=== PATIENT | female | born 1950 | race Caucasian/White ===

== ENCOUNTER 2020-05-28 14:00 | Outpatient (RCR) | payer MEDICARE, SELFPAY ==
--- NOTE | 2020-05-12 15:09 | MHC.PT.EP ---
[facility] [place] Office [place] Office [place] Office [address] Robel Hughes [address] [phone] F: [phone] F: [phone] F: [phone] F: [phone] Physical Therapy Plan of Care Date of Evaluation: 05/12/20 Date of Surgery: n/a Diagnosis: Sciatica Assessment: Patient is a 70 year old R handed female who presents with s/s consistent with sciatica. She is retired but use to work a challenging job with heavy lifting frequently during her day. She also had a back injury as a teen that required bracing for almost an entire year. Bending/prolonged positions aggravate pain. Patient past medical history also include HTN and high cholesterol. Current impairments include pain, ROM, strength, activity tolerance and functional mobility. Functional limitations include decreased ability to walk, stand, transfer, negotiate stairs, and perform weight bearing activities.. Patient is motivated with good rehab potential. Skilled PT will address impairments and functional limitations in order to achieve goals. Frequency and Duration: The patient will be seen 2x/week for 6 weeks Short Term Goals: I with HEP - 2 weeks Reduce R sided tissue tension - 3 weeks Symmetrical extension - 3 weeks Detention Goals: Able to walk/stand/sit > 30 minutes without increased pain - 5 weeks Pain free ADLS, demo proper transfer mechanics, floor to waist lift - 6 weeks Treatment Plan: Modalities to reduce pain, spasms and effusion. Manual therapy to restore motion and function. Therapeutic exercise to improve strength and flexibility. Neuromuscular re-education for posture and balance. Therapeutic activities to return to functional activities of daily living. Please sign and return to therapist. Thank you for your referral.
--- NOTE | 2020-06-19 10:38 | MHC.PT.DC ---
[facility] [place] Office [address] Robel Hughes [address] [phone] F: [phone] F: [phone] F: [phone] F: [phone] Physical Therapy Discharge Report Diagnosis: Sciatica Date of Surgery: n/a Date of Evaluation: 05/12/20 Date of Discharge: 06/19/20 Treatments to Date: 3 Cancellations to Date: No Shows to Date: Discharge Status: Independent with HEP Discharge Summary: Pt felt relief after RX. Improv alignment L rot sacrum. Pt c/o S/S pain. To attempt to continue with HEP. Electronically signed by: Kevin Nuñez PT Please sign and return to therapist. Thank you for your referral.
== END 2020-06-19 10:39 | disposition home or self-care (01) ==
LOC: HO.PTCHIC 14:00
PROVIDERS: PCP Internal Medicine; Visit Provider Internal Medicine
DX: M54.30 Sciatica, unspecified side (principal)
CPT/HCPCS: 97014; 97110; 97140; 97161

== ENCOUNTER 2020-06-05 08:28 | Outpatient (REF) | payer MEDICARE, SELFPAY ==
--- NOTE | 2020-06-05 08:29 | US_ITS ---
EXAMINATION: US THYROID CLINICAL INFORMATION: Nontoxic goiter, unspecified. COMPARISON:. Ultrasound soft tissue head/neck thyroid dated 05/14/2019 TECHNIQUE: Linear transducer pearson-scale and color Doppler examination with attention to the region of the thyroid. FINDINGS: SIZE: Measurements of the thyroid lobes and nodules are given in sagittal, anteroposterior and transverse dimensions respectively. Right Thyroid Lobe: 3.5 x 1.7 x 1.2 cm, volume 3.6 mL. Parenchyma: The gland echotexture is homogeneous. Thyroid vascularity is normal. Left Thyroid Lobe: 3.5 x 1.2 x 1.2 cm, volume 2.6 mL. Parenchyma: The gland echotexture is homogeneous. Thyroid vascularity is normal. Isthmus: 0.1 cm in maximum AP dimension. RIGHT THYROID LOBE: No nodules. ISTHMUS: No nodules. LEFT THYROID LOBE: No nodules. NODES: No lymphadenopathy is seen in the tissue surrounding the thyroid gland. US/US thyroid IMPRESSION: Unremarkable thyroid ultrasound. No nodules seen. No increased vascularity.
--- NOTE | 2020-06-05 08:29 | US_ITS ---
EXAMINATION: US RETROPERITONEAL LIMITED (RENAL ONLY) CLINICAL INFORMATION: Hematuria, unspecified. COMPARISON: Ultrasound abdomen complete 10/19/2018. TECHNIQUE: Real-time imaging of the kidneys. FINDINGS: RIGHT KIDNEY: 10.3 x 4.5 x 5.8 cm (SAG x AP x TRV). The kidney is normal in size, contour, and echogenicity. Renal cortical thickness is normal. No calculi or focal parenchymal lesions. No hydronephrosis. LEFT KIDNEY: 11.3 x 5.0 x 4.5 cm (SAG x AP x TRV). The kidney is normal in size, contour, and echogenicity. Renal cortical thickness is normal. No calculi or focal parenchymal lesions. No hydronephrosis. US/US renal BI IMPRESSION: Unremarkable renal ultrasound.
== END 2020-06-05 08:29 | disposition home or self-care (01) ==
LOC: HO.HMGCX 08:28
PROVIDERS: PCP Internal Medicine; Visit Provider Internal Medicine
DX: E04.9 Nontoxic goiter, unspecified (principal); R31.9 Hematuria, unspecified
CPT/HCPCS: 76536; 76775

== ENCOUNTER 2020-07-30 08:41 | Outpatient (REF) | payer MEDICARE, SELFPAY ==
--- NOTE | 2020-07-30 08:52 | XR_ITS ---
EXAMINATION: XR CHEST CLINICAL INFORMATION: Cough COMPARISON: Chest radiographs 03/26/2020 TECHNIQUE: 2 views of the chest were obtained. FINDINGS: The lungs are clear. The heart is normal in size. The vascularity is normal. The costophrenic sulci are clear. Hilar and mediastinal contours and bony structures are stable. Again, there are bilateral cervical ribs and some surgical clips overlying the left anterolateral chest or axilla. XR/XR chest 2V IMPRESSION: Unremarkable examination.
[2020-07-30 11:24] LABS: Alanine Aminotransferase 42 U/L (0-31); Albumin Level 4.5 g/dL (3.5-5.0); Alkaline Phosphatase 90 U/L (39-117); Anion Gap 15 (12-20); Aspartate Amino Transferase 23 U/L (5-31); Bilirubin Total 0.7 mg/dL (0.0-1.0); Blood Urea Nitrogen 20 mg/dL (9-16); Calcium 9.5 mg/dL (8.4-10.2); Carbon Dioxide 28 mmol/L (22-29); Chloride 104 mmol/L (96-108); Cholesterol 163 mg/dL; Estimated Glomerular Filt Rate 48; Glucose Fasting 107 mg/dL (60-99); HDL Cholesterol 41 mg/dL; LDL Cholesterol Calculated 86 mg/dl; Potassium 3.5 mmol/l (3.3-5.1); Sodium 143 mmol/L (135-145); Total Protein 7.2 g/dL (6.5-8.0); Triglycerides 184 mg/dL
[2020-07-30 12:00] LABS: TSH reflex Free T4 2.87 mIU/mL (0.32-4.0)
== END 2020-07-30 08:42 | disposition home or self-care (01) ==
LOC: HO.HMGCX 08:41
PROVIDERS: PCP Internal Medicine; Visit Provider Internal Medicine
DX: R05 Cough (principal); I10 Essential (primary) hypertension; E78.5 Hyperlipidemia, unspecified; J40 Bronchitis, not specified as acute or chronic
CPT/HCPCS: 36415; 71046; 80053; 80061; 84443

== ENCOUNTER 2021-04-23 10:34 | Outpatient (REF) | payer MEDICARE, SELFPAY ==
[2021-04-23 14:05] LABS: Hematocrit 38.1 % (37-47); Hemoglobin 12.9 g/dl (12.0-16.0); Mean Corpuscular HGB Conc 33.9 g/dl (31.0-35.0); Mean Corpuscular Hemoglobin 30.7 pg (27.0-33.0); Mean Corpuscular Volume 90.7 fL (80-98); Mean Platelet Volume 9.5 fL (9.4-12.3); Platelet Count 256 X10*3/uL (160-400); Red Cell Distribution Width 12.6 % (11.0-16.0); White Blood Count 8.3 X10*3/uL (4.8-10.8)
[2021-04-23 14:19] LABS: Alanine Aminotransferase 40 U/L (0-31); Albumin Level 4.4 g/dL (3.5-5.0); Alkaline Phosphatase 91 U/L (39-117); Anion Gap 13 (12-20); Aspartate Amino Transferase 28 U/L (5-31); Bilirubin Total 0.6 mg/dL (0.0-1.0); Blood Urea Nitrogen 25 mg/dL (9-16); Calcium 9.9 mg/dL (8.4-10.2); Carbon Dioxide 27 mmol/L (22-29); Chloride 105 mmol/L (96-108); Cholesterol 150 mg/dL; Estimated Glomerular Filt Rate 44; Glucose Fasting 108 mg/dL (60-99); HDL Cholesterol 38 mg/dL; LDL Cholesterol Calculated 88 mg/dl; Potassium 3.3 mmol/L (3.3-5.1); Sodium 142 mmol/L (135-145); Total Protein 6.9 g/dL (6.5-8.0); Triglycerides 122 mg/dL
[2021-04-23 14:39] LABS: TSH reflex Free T4 2.49 uIU/mL (0.32-4.0)
[2021-04-23 16:29] LABS: Appearance Urine CLOUDY; Color Urine YELLOW; Glucose Urine UA NEG (NEG); Leukocyte Esterase Urine 1+ (NEG); Nitrite Urine POS (NEG); Specific Gravity - Urine 1.025 (1.005-1.025); Urine Blood NEG (NEG); Urine Ketones NEG (NEG); Urine Protein NEG (NEG-TRACE)
[2021-04-23 16:40] LABS: Bacteria Urine 3+ /LPF; Mucus Urine 2+ /LPF; Squamous Epithelial Cell Urine 1+ /LPF; Urine Talc Crystals TRACE /LPF
[2021-04-23 16:41] LABS: RBC Urine 0-2 /HPF (0)
== END 2021-04-23 10:35 | disposition home or self-care (01) ==
LOC: HO.HMGCLDS 10:34
PROVIDERS: PCP Internal Medicine; Visit Provider Internal Medicine
DX: R73.9 Hyperglycemia, unspecified (principal); I10 Essential (primary) hypertension; E78.5 Hyperlipidemia, unspecified
CPT/HCPCS: 36415; 80053; 80061; 81001; 84443; 85027

== ENCOUNTER 2022-01-01 10:32 | Outpatient (REF) | payer MEDICARE, SELFPAY ==
[2022-01-01 12:15] LABS: Estimated Average Glucose 100 mg/dL; Hemoglobin A1c % 5.1 %
[2022-01-01 12:20] LABS: TSH reflex Free T4 2.91 uIU/mL (0.32-4.0)
[2022-01-01 12:24] LABS: Alanine Aminotransferase 22 U/L (0-31); Albumin Level 4.5 g/dL (3.5-5.0); Alkaline Phosphatase 82 U/L (39-117); Anion Gap 12 (12-20); Aspartate Amino Transferase 23 U/L (5-31); Bilirubin Total 0.6 mg/dL (0.0-1.0); Blood Urea Nitrogen 22 mg/dL (9-16); Calcium 9.8 mg/dL (8.4-10.2); Carbon Dioxide 27 mmol/L (22-29); Chloride 107 mmol/L (96-108); Cholesterol 169 mg/dL; Estimated Glomerular Filt Rate 47; Glucose Fasting 108 mg/dL (60-99); HDL Cholesterol 42 mg/dL; LDL Cholesterol Calculated 96 mg/dl; Potassium 3.5 mmol/L (3.3-5.1); Sodium 142 mmol/L (135-145); Triglycerides 155 mg/dL
[2022-01-01 14:22] LABS: Microalbum/Creatinine Ratio Ur 6.3 ug/mg cr
== END 2022-01-01 10:33 | disposition home or self-care (01) ==
LOC: HO.HMGCLDS 10:32
PROVIDERS: PCP Internal Medicine; Visit Provider Internal Medicine
DX: E04.9 Nontoxic goiter, unspecified (principal); E78.5 Hyperlipidemia, unspecified; I10 Essential (primary) hypertension; R73.9 Hyperglycemia, unspecified
CPT/HCPCS: 36415; 80053; 80061; 82043; 83036; 84443

== ENCOUNTER → 2022-02-22 10:54 | Outpatient (BNVA) | payer MEDICARE, SELFPAY | PROVIDERS: PCP Internal Medicine; Referring Provider Internal Medicine; Visit Provider Physician Assistant | DX: Z01.818 Encounter for other preprocedural examination (principal); K52.9 Noninfective gastroenteritis and colitis, unspecified; K59.09 Other constipation; R10.9 Unspecified abdominal pain; Z79.899 Other long term (current) drug therapy; Z86.010 Personal history of colon polyps | CPT/HCPCS: 99202 ==

== ENCOUNTER 2022-12-15 11:40 | Outpatient (REF) | payer MEDICARE, SELFPAY ==
[2022-12-15 13:58] LABS: MANUAL DIFF FLAG NO
[2022-12-15 14:00] LABS: Appearance Urine Clear; Color Urine Yellow; Glucose Urine UA Negative (Negative); Leukocyte Esterase Urine Small (1+) (Negative); Nitrite Urine Positive (Negative); UMIC TRIGGER UA YES; Urine Blood Negative (Negative); Urine Ketones Negative (Negative); Urine Protein Negative (Neg-Trace)
[2022-12-15 14:06] LABS: Basophils Absolute Auto 0.1 X10*3/uL (0.0-0.2); Basophils Percent Auto 0.9 % (0-2); Eosinophils Absolute Auto 0.2 X10*3/uL (0.0-0.4); Eosinophils Percent Auto 2.8 % (0-4); Hemoglobin 14.1 g/dl (12.0-16.0); Imm Gran Abs Auto 0.02 X10*3/uL (0.00-0.03); Imm Gran Pct Auto 0.3 % (0.0-0.4); Lymphocytes Absolute Auto 1.9 X10*3/uL (1.2-4.9); Lymphocytes Percent Auto 24.4 % (20-40); Mean Corpuscular HGB Conc 33.6 g/dl (31.0-35.0); Mean Corpuscular Hemoglobin 31.3 pg (27.0-33.0); Mean Corpuscular Volume 93.1 fL (80.0-98.0); Mean Platelet Volume 9.7 fL (9.4-12.3); Monocytes Absolute Auto 0.6 X10*3/uL (0.1-1.2); Monocytes Percent Auto 7.9 % (2-11); Neutrophils Absolute Auto 4.9 x10*3/uL (2.0-8.3); Neutrophils Percent Auto 63.7 % (45-73); Platelet Count 249 X10*3/uL (160-400); Red Blood Count 4.51 X10*6/uL (4.20-5.50); Red Cell Distribution Width 13.1 % (11.0-16.0); White Blood Count 7.6 X10*3/uL (4.8-10.8)
[2022-12-15 14:11] LABS: Bacteria Urine 4+ (None Seen); Hyaline Casts Urine 0-2 /LPF (0-2)
[2022-12-15 14:17] LABS: Estimated Average Glucose 103 mg/dL; Hemoglobin A1c % 5.2 %
[2022-12-15 14:23] LABS: Alanine Aminotransferase 25 U/L (0-31); Albumin Level 4.3 g/dL (3.5-5.0); Alkaline Phosphatase 71 U/L (39-117); Anion Gap 12 (12-20); Aspartate Amino Transferase 21 U/L (5-31); Bilirubin Total 0.8 mg/dL (0.0-1.0); Blood Urea Nitrogen 19 mg/dL (9-16); Calcium 9.8 mg/dL (8.4-10.2); Carbon Dioxide 27 mmol/L (22-29); Chloride 108 mmol/L (96-108); Cholesterol 169 mg/dL; Estimated Glomerular Filt Rate 55; Glucose Fasting 106 mg/dL (60-99); HDL Cholesterol 47 mg/dL; LDL Cholesterol Calculated 94 mg/dl; Potassium 3.9 mmol/L (3.3-5.1); Sodium 143 mmol/L (135-145); Total Protein 7.1 g/dL (6.5-8.0); Triglycerides 144 mg/dL
[2022-12-15 14:38] LABS: TSH reflex Free T4 1.83 uIU/mL (0.32-4.0)
== END 2022-12-15 11:41 | disposition home or self-care (01) ==
LOC: HO.HMGCLDS 11:40
PROVIDERS: PCP Internal Medicine; Visit Provider Internal Medicine
DX: R73.9 Hyperglycemia, unspecified (principal); I10 Essential (primary) hypertension; E78.5 Hyperlipidemia, unspecified
CPT/HCPCS: 36415; 80053; 80061; 81001; 83036; 84443; 85025

== ENCOUNTER 2023-01-06 10:35 | Outpatient (REF) | payer MEDICARE, SELFPAY | END 2023-01-06 10:36 | disposition home or self-care (01) | LOC: HO.HMGCLDS 10:35 | PROVIDERS: PCP Internal Medicine; Visit Provider Internal Medicine | DX: R82.71 Bacteriuria (principal) | CPT/HCPCS: 81001; 87086 ==

== ENCOUNTER 2023-02-24 13:59 | Outpatient (AMB) | payer MEDICARE, SELFPAY ==
[2023-02-24 14:29] VITALS: BP 118/64; PULSE 57; O2SAT 97; BMI 31.0
--- NOTE | 2023-02-24 14:29 | A.OFFPC_ITS ---
Vital Signs 02/24/23 14:29 Height 5 ft 6 in Weight 192 lb BMI 31.0 BP 118/64 Blood Pressure Location Lt brachial Position Sitting Pulse 57 Pulse Source Pulse Oximeter Pulse Oximetry (%) 97 Oxygen Delivery Method Room Air Intake Visit Reasons: lump on R armpit Intake Note: Pt is here today for a sick visit. Pt c/o lump under her R armpit. Allergies Penicillins Allergy (Intermediate, Verified 02/24/23 14:33) Hives Medication List - Last Reconciled 02/24/23 by Ilana Edouard MD amlodipine 5 mg PO DAILY atorvastatin 40 mg PO DAILY bisacodyl (Dulcolax (bisacodyl)) 10 mg (2 x 5 mg) PO ONCE 1 day donepezil 5 mg PO DAILY doxycycline monohydrate 100 mg PO BID methylcellulose (laxative) (Citrucel) 500 mg PO BID metoprolol succinate ER 50 mg PO DAILY nitrofurantoin monohyd/m-cryst 100 mg (Macrobid) 100 mg PO Q12H 7 days polyethylene glycol 3350 (Miralax) 238 grams PO ONCE 1 day sertraline 50 mg PO DAILY triamterene-hydrochlorothiazid 37.5-25 mg 1 tab PO DAILY Tobacco use date assessed: 12/15/22 Dental Screening Dental Screen Date: 02/24/23 Did you have a dental visit in the last 12 months?: Yes Did you have a dental problem in the last 6 months where you did not have access to dental care?: No Was dental information given to patient?: Patient has dentist HPI lump on R armpit HPI Details Pt presents c/o lump right axillary region since yesterday. Patient denies any pain, breast or nipple changes, fever chills. The most recent mammogram was over 2 years ago. Patient complains of right mid lumbar paraspinal pain worse with change in position or deep inspiration. Patient denies flank pain nausea vomiting dysuria frequency abdominal pain. [facility] Medical History (Updated 02/24/23 @ 15:15 by Ilana Edouard MD) Annual physical exam Asthma Bronchitis Chronic edema Cough Enlarged thyroid gland Family history- stomach cancer Hematuria History of mammogram HTN (hypertension) Hyperglycemia Hyperlipidemia Liver hemangioma Sciatica Submandibular gland infection Surgical History H/O colonoscopy H/O shoulder surgery Family History Father No problems noted. Mother No problems noted. Social History Housing: House Are you a primary animal care taker to a significant other at home: No Do you presently have visiting nurse or other home services: No Alcohol intake: never Patient Tobacco Use Status: Never used Tobacco e-Cigarette/Vaping Use: Never Used Current occupational status: retired Cognitive needs: No Hearing needs: No Vision needs: Yes Questionnaire Thrive Questionnaire Date Thrive assessed: 12/15/22 IRWIN-7 AMB Questionnaire IRWIN-7 Date IRWIN - 7 assessed: 12/15/22 Source: Developed by Drs. Jacoby Bernal, Lawanda Lu, Carlos Manuel Bills and colleagues, with an educational joel from [email or web address]. Review of Systems Const All systems reviewed & are unremarkable except as noted in HPI and below Reports no additional complaints Eyes Reports no additional complaints ENT Reports no additional complaints Card Reports no additional complaints Resp Reports no additional complaints GI Reports no additional complaints Reports no additional complaints Physical exam (Primary Care) Vital Signs: Last Vital Signs Pulse 57 02/24/23 14:29 BP 118/64 02/24/23 14:29 Pulse Ox 97 02/24/23 14:29 Oxygen Delivery Method Room Air 02/24/23 14:29 BMI result Body Mass Index 31.0 Tobacco/Smoking Status: Tobacco use Status Tobacco use date assessed 12/15/22 02/24/23 14:34 Patient Tobacco Use Status Never used Tobacco 02/24/23 14:34 e-Cigarette/Vaping Use Never Used 02/24/23 14:34 Thrive Assessment: Date of Thrive Assessment Date Thrive assessed 12/15/22 02/24/23 14:34 Const General: no acute distress Eyes General: appearance normal, both eyes and all related structures Chest Breast/axilla inspection: normal inspection of the breasts and abnormal inspection of the axilla (Right axillary 2 cm subcutaneous nodule mobile slightly tender no erythema ) Breast/axilla palpation: normal palpation of the breasts Resp Effort & Inspection: normal respiratory effort Auscultation: clear to auscultation bilaterally Cardio Rhythm: regular rhythm Heart sounds: S1 normal heart sound present and S2 normal heart sound present GI Inspection: Yes normal to inspection Palpation (GI): Soft to palpation Percussion: Yes normal to percussion Back/Spine/Pelvis Other: Paraspinal tenderness right more than left in mid lumbar region, straight leg rising 90 degrees bilaterally Assessment and Plan Assessment & Plan (1) Degenerative lumbar disc: Code(s): M51.36 - Other intervertebral disc degeneration, lumbar region Plan: Check lumbar x-ray and Referred to physical therapy (2) Axillary lump: Comment: right Code(s): R22.30 - Localized swelling, mass and lump, unspecified upper limb Plan: Obtain diagnostic right breast mammogram and screening left breast mammogram, doxycycline for 10 days is prescribed and supportive care discussed with the patient. If the mass persists patient will be referred to surgeon for evaluation Orders: Orders MM diagnostic mammo unilat RT Today M79.89 - Other specified soft tissue disorders MM screening mammo unilat LT Today Z12.31 - Encounter for screening mammogram for malignant neoplasm of breast PT Evaluation and Treatment Today M51.36 - Other intervertebral disc degeneration, lumbar region XR chest 1V Today M51.36 - Other intervertebral disc degeneration, lumbar region XR lumbar spine 2-3V Today M51.36 - Other intervertebral disc degeneration, lumbar region Medications: New doxycycline monohydrate 100 mg PO BID 20 tabs 0RF ketoconazole 2% 1 appl topical DAILY 60 grams 0RF Coding Level of Care Code Est Pt Level 4 (79473) Diagnoses Degenerative lumbar disc M51.36 Axillary lump R22.30
== END 2023-02-24 15:16 | disposition home or self-care (01) ==
PROVIDERS: PCP Internal Medicine; Visit Provider Internal Medicine
DX: M51.36 Other intervertebral disc degeneration, lumbar region (principal); R22.30 Localized swelling, mass and lump, unspecified upper limb
CPT/HCPCS: 99214

== ENCOUNTER 2023-02-24 15:05 | Outpatient (REF) | payer MEDICARE, SELFPAY ==
--- NOTE | ~2023-02-24 | XR_ITS ---
EXAMINATION: XR THORACOLUMBAR SPINE CLINICAL INFORMATION: Pain. COMPARISON: None available. TECHNIQUE: Frontal, lateral and swimmer's views are submitted. FINDINGS: Vertebral body heights and alignment are normal. There is mild posterior disc space narrowing at C2-C3. There is mild disc space narrowing and spondylosis at C4-C5 and C5-C6. There is moderate disc space narrowing spondylosis at C6-C7 and C7-T1. There is mild disc space narrowing at T8-T9. The remaining thoracic disc spaces are well-maintained. No acute fracture or spondylolisthesis is seen. The posterior elements are intact. The paravertebral soft tissues are unremarkable. XR/XR thoracic spine 2V IMPRESSION: 1. There is multi-level cervical degenerative disc disease and spondylosis, as above. 2. There is mild degenerative disc disease at T8-T9. 3. No acute fracture or spondylolisthesis is seen.
--- NOTE | ~2023-02-24 | XR_ITS ---
EXAMINATION: XR BILATERAL HIPS CLINICAL INFORMATION: Pain. COMPARISON: None available. TECHNIQUE: AP and frog lateral views of the bilateral hips were obtained. FINDINGS: Bony alignment and mineralization are normal. The acetabular joint spaces are well-maintained. There is mild subchondral sclerosis and irregularity of the acetabular roofs. The femoral heads are smooth. The included sacroiliac joints are symmetric and well-maintained. The pubic symphysis is intact. No foreign body is seen. XR/XR hips STEFANIE min 3V IMPRESSION: There is very mild degenerative change of the hips. No fracture or dislocation is seen.
== END 2023-02-24 15:06 | disposition home or self-care (01) ==
LOC: HO.HMGCX 15:05
PROVIDERS: PCP Internal Medicine; Visit Provider Internal Medicine
DX: M54.6 Pain in thoracic spine (principal); M25.551 Pain in right hip; M25.552 Pain in left hip
CPT/HCPCS: 72070; 73522

== ENCOUNTER → 2023-03-24 08:45 | Outpatient (BNV) | payer MEDICARE, SELFPAY | PROVIDERS: PCP Internal Medicine; Visit Provider Radiology Diagnostic Radiology | DX: Z12.31 Encounter for screening mammogram for malignant neoplasm of breast (principal) | CPT/HCPCS: 77063; 77067 ==

== ENCOUNTER 2023-03-24 09:29 | Outpatient (REF) | payer MEDICARE, SELFPAY ==
--- NOTE | ~2023-03-24 | MM_ITS ---
EXAMINATION: MM SCREENING DIGITAL BREAST TOMOSYNTHESIS, BILATERAL CLINICAL INFORMATION: Screening. Asymptomatic. COMPARISON: Mammography: This study is compared with prior exams dating back to 2016. TECHNIQUE: Digital breast tomosynthesis is performed in both the craniocaudal and mediolateral oblique views along with computer-aided detection (CAD). Synthesized 2D images are generated from the tomosynthesis. FINDINGS: There are scattered areas of fibroglandular density (ACR BI-RADS breast composition Category b). There are no significant masses, abnormal calcifications, or other abnormalities. MM/MM tomosynthesis screening BI IMPRESSION: No mammographic evidence of malignancy. ASSESSMENT: BI-RADS BI-RADS 1 - Negative RECOMMENDATION: Routine annual mammography screening. 1 year F/U This examination should not preclude the clinical evaluation of a suspicious palpable abnormality. This patient's information was entered into a reminder system with a target due date for their next mammogram.
== END 2023-03-24 09:30 | disposition home or self-care (01) ==
LOC: HO.MAMMO 09:29
PROVIDERS: PCP Internal Medicine; Visit Provider Internal Medicine
DX: Z12.31 Encounter for screening mammogram for malignant neoplasm of breast (principal)
CPT/HCPCS: 77063; 77067

== ENCOUNTER 2023-11-04 13:58 | Outpatient (AMB) | payer OTHER, SELFPAY ==
[2023-11-04 14:07] VITALS: BP 110/66; PULSE 73; O2SAT 98; BMI 28.4
--- NOTE | 2023-11-04 14:07 | MHC.PC.OV ---
Vital Signs 11/04/23 14:07 Height 5 ft 6 in Weight 176 lb BMI 28.4 BP 110/66 Blood Pressure Location Rt brachial Position Sitting Pulse 73 Pulse Source Pulse Oximeter Pulse Oximetry (%) 98 Oxygen Delivery Method Room Air Intake Visit Reasons: Follow up Intake Note: Pt is here today for a follow up visit. Allergies Penicillins Allergy (Intermediate, Verified 11/04/23 14:14) Hives Tobacco use date assessed: 11/04/23 Fall risk assessment: No Falls in past year Last assessed Fall Risk: 11/04/23 Dental Screening Dental Screen Date: 11/04/23 Did you have a dental visit in the last 12 months?: No Did you have a dental problem in the last 6 months where you did not have access to dental care?: No Was dental information given to patient?: Patient declined HPI Follow up HPI Details Pt presents for f/u HTN, hyperlipid, chronic anxiety. Patient's sister from lung cancer last week. Patient is going to [employer] for 3 months next month. [facility] Medical History (Updated 11/04/23 @ 15:18 by Ilana Edouard MD) Submandibular gland infection Annual physical exam Hyperglycemia Asthma Cough Bronchitis Hematuria Enlarged thyroid gland Family history- stomach cancer Liver hemangioma History of mammogram Chronic edema Hyperlipidemia HTN (hypertension) Sciatica Surgical History H/O colonoscopy H/O shoulder surgery Family History (Updated 11/04/23 @ 14:19 by JOSÉ MANUEL Morales) Father No problems noted. Mother No problems noted. Sister No problems noted. Social History Housing: House Are you a primary customer care agent to a significant other at home: No Do you presently have visiting nurse or other home services: No Alcohol intake: never Patient Tobacco Use Status: Never used Tobacco e-Cigarette/Vaping Use: Never Used service: No Current occupational status: retired Cognitive needs: No Hearing needs: No Vision needs: Yes Questionnaire PHQ-9 Over the last 2 weeks, how often have you been bothered by any of the following problems? 1. Little interest or pleasure in doing things: not at all 2. Feeling down, depressed, or hopeless: several days 3. Trouble falling or staying asleep, or sleeping too much: not at all 4. Feeling tired or having little energy: not at all 5. Poor appetite or overeating: not at all 6. Feeling bad about yourself - or that you are a failure or have let yourself or your family down: not at all 7. Trouble concentrating on things, such as reading the newspaper or watching television: not at all 8. Moving or speaking so slowly that other people could have noticed. Or the opposite - being so fidgety or restless that you have been moving around a lot more than usual: not at all 9. Thoughts that you would be better off or of hurting yourself in some way: not at all Total score: 1 Depression Screening Interpretation: Negative Depression Screening Done: Yes Source: Developed by Drs. Jacoby Bernal, Lawanda Lu, Carlos Manuel Bills and colleagues, with an educational joel from [employer]. Thrive Questionnaire Date Thrive assessed: 11/04/23 I am a: Patient What is your living situation today?: I have a steady place to live Within the past 12 months, did the food you bought not last and you didn't have the money to get more?: Never true Within the past 12 months, did you worry whether your food would run out before you got money to buy more?: Never true Do you have trouble paying for medicines?: No Do you have trouble getting transportation to medical appointments?: No Do you have trouble paying your heating and electricity bill?: No Do you have trouble taking care of your child, family member or friend?: No Do you have trouble with day-to-day activities such as bathing, preparing meals, shopping, managing finances, etc.?: No Are you currently unemployed and looking for a job?: No Are you interested in more education?: No Please select the resources that you would like help with: None THRIVE Score: 0 AUDIT C Alcohol Use Questionnaire (AUDIT-C) 1. How often do you have a drink containing alcohol?: Monthly or less 2. How many drinks containing alcohol do you have on a typical day when you are drinking?: 1 or 2 3. How often do you have six or more drinks on one occasion?: Never Total Score: 1 IRWIN-7 AMB Questionnaire IRWIN-7 Date IRWIN - 7 assessed: 11/04/23 Feeling nervous, anxious, or on edge: 0 = Not at all Not being able to stop or control worryin = Not at all Worrying too much about different things: 0 = Not at all Trouble relaxin = Not at all Being so restless that it is hard to sit still: 0 = Not at all Becoming easily annoyed or irritable: 0 = Not at all Feeling afraid as if something awful might happen: 0 = Not at all Total IRWIN-7 score (0-4 normal; 5-9 mild; 10-14 moderate; 15-21 severe): 0 Source: Developed by Drs. Jacoby Bernal, Lawanda Lu, Carlos Manuel Bills and colleagues, with an educational joel from [employer]. Review of Systems Const All systems reviewed & are unremarkable except as noted in HPI and below ENT Reports no additional complaints Card Reports no additional complaints Resp Reports no additional complaints GI Reports no additional complaints Reports no additional complaints Physical exam (Primary Care) Vital Signs: Last Vital Signs Pulse 73 11/04/23 14:07 BP 110/66 11/04/23 14:07 Pulse Ox 98 11/04/23 14:07 Oxygen Delivery Method Room Air 11/04/23 14:07 BMI result Body Mass Index 28.4 Tobacco/Smoking Status: Tobacco use Status Tobacco use date assessed 11/04/23 11/04/23 14:18 Patient Tobacco Use Status Never used Tobacco 11/04/23 14:18 e-Cigarette/Vaping Use Never Used 11/04/23 14:18 PHQ-9: PHQ-9 Score PHQ-9: Total score 1 11/04/23 14:18 Depression Screening Interpretation: Negative Thrive Assessment: Date of Thrive Assessment Date Thrive assessed 11/04/23 11/04/23 14:18 Const General: no acute distress HENMT Head: Yes normal to inspection General nose exam: Normal external nose present Throat: Yes posterior oropharynx normal Eyes General: appearance normal, both eyes and all related structures Resp Effort & Inspection: normal respiratory effort Auscultation: clear to auscultation bilaterally Cardio Rhythm: regular rhythm Heart sounds: S1 normal heart sound present and S2 normal heart sound present GI Inspection: Yes normal to inspection Palpation (GI): Soft to palpation Assessment and Plan Assessment & Plan (1) Annual physical exam: Code(s): Z00.00 - Encounter for general adult medical examination without abnormal findings (2) Postmenopausal: Code(s): Z78.0 - Asymptomatic menopausal state Plan: Schedule DEXA (3) Hyperlipidemia: Code(s): E78.5 - Hyperlipidemia, unspecified Plan: Continue statin return for fasting blood work (4) HTN (hypertension): Code(s): I10 - Essential (primary) hypertension Plan: Continue current medications (5) Anxiety: Code(s): F41.9 - Anxiety disorder, unspecified Plan: Continue sertraline Orders: Orders XR DEXA axial skeleton Today Z78.0 - Asymptomatic menopausal state Comprehensive Eads. Panel Fast Today E55.9 - Vitamin D deficiency, unspecified, E78.5 - Hyperlipidemia, unspecified, F41.9 - Anxiety disorder, unspecified, I10 - Essential (primary) hypertension, Z78.0 - Asymptomatic menopausal state Vitamin D 25-OH Total Today E55.9 - Vitamin D deficiency, unspecified, E78.5 - Hyperlipidemia, unspecified, F41.9 - Anxiety disorder, unspecified, I10 - Essential (primary) hypertension, Z78.0 - Asymptomatic menopausal state Lipid Panel Today E55.9 - Vitamin D deficiency, unspecified, E78.5 - Hyperlipidemia, unspecified, F41.9 - Anxiety disorder, unspecified, I10 - Essential (primary) hypertension, Z78.0 - Asymptomatic menopausal state Complete Blood Count Auto Diff Today E55.9 - Vitamin D deficiency, unspecified, E78.5 - Hyperlipidemia, unspecified, F41.9 - Anxiety disorder, unspecified, I10 - Essential (primary) hypertension, Z78.0 - Asymptomatic menopausal state TSH reflex Free T4 Today E55.9 - Vitamin D deficiency, unspecified, E78.5 - Hyperlipidemia, unspecified, F41.9 - Anxiety disorder, unspecified, I10 - Essential (primary) hypertension, Z78.0 - Asymptomatic menopausal state Medications: Refilled sertraline 50 mg PO DAILY 90 tabs 3RF amlodipine 5 mg PO DAILY 90 tabs 3RF triamterene-hydrochlorothiazid 37.5-25 mg 1 tab PO DAILY 90 tabs 3RF metoprolol succinate ER 50 mg PO DAILY 90 tabs 3RF atorvastatin 40 mg PO DAILY 90 tabs 3RF Discontinued donepezil Discontinued Reason: Doctor's Order 5 mg PO DAILY 90 tabs 3RF bisacodyl (Dulcolax (bisacodyl)) Take 2 tablets by mouth at 12:00pm the day before your procedure. Discontinued Reason: Doctor's Order 10 mg (2 x 5 mg) PO ONCE 1 day 2 tabs 0RF colonoscopy prep Z12.11 - Encounter for screening for malignant neoplasm of colon polyethylene glycol 3350 (Miralax) Take as directed by mouth the day before your procedure. Discontinued Reason: Doctor's Order 238 grams PO ONCE 1 day 238 grams 0RF Coding Level of Care Code Est Pt Level 4 (21694) Diagnoses Annual physical exam Z00.00 Postmenopausal Z78.0 Hyperlipidemia E78.5 HTN (hypertension) I10 Anxiety F41.9
== END 2023-11-04 15:20 | disposition home or self-care (01) ==
PROVIDERS: PCP Internal Medicine; Visit Provider Internal Medicine
DX: Z78.0 Asymptomatic menopausal state (principal); E78.5 Hyperlipidemia, unspecified; I10 Essential (primary) hypertension; F41.9 Anxiety disorder, unspecified
CPT/HCPCS: 99214

== ENCOUNTER 2023-11-21 08:58 | Outpatient (REF) | payer OTHER, SELFPAY ==
--- NOTE | ~2023-11-21 | XR_ITS ---
EXAMINATION: XR LUMBOSACRAL SPINE CLINICAL INFORMATION: Intervertebral disc degeneration COMPARISON: Thoracic spine and bilateral hips 02/24/2023. TECHNIQUE: Three views of the lumbosacral spine. FINDINGS: Mild kyphoscoliosis of the lumbar spine. The bones are diffusely demineralized. Degenerative changes in the bilateral sacroiliac joints. Atherosclerotic aortoiliac calcifications. Facet arthritis in the in the lower lumbar spine. Mild multilevel lumbar spondylosis with mild loss of disc space height at L4-L5. XR/XR lumbar spine 2-3V IMPRESSION: 1. Facet arthritis lower lumbar spine. 2. Mild multilevel lumbar spondylosis with mild loss of disc space height at L4-L5.
--- NOTE | ~2023-11-21 | XR_ITS ---
EXAMINATION: XR CHEST CLINICAL INFORMATION: Intervertebral disc degeneration lumbar region. COMPARISON: Thoracic spine February 24, 2023. Chest radiograph 07/30/2020. TECHNIQUE: Frontal view of the chest was obtained. FINDINGS: Redemonstration of bilateral cervical ribs with cervical clips. There is no gross pneumothorax. Heart size is normal. Surgical clips overlying the left axilla/chest. Degenerative changes in the thoracic spine. Moderate streaky opacities at the lung bases, left greater than right, may represent atelectasis, although an infectious/inflammatory process should be considered in the appropriate clinical setting. XR/XR chest 1V IMPRESSION: Moderate streaky opacities at the lung bases, left greater than right, may represent atelectasis, although an infectious/inflammatory process should be considered in the appropriate clinical setting.
[2023-11-21 10:25] LABS: MANUAL DIFF FLAG NO
[2023-11-21 10:38] LABS: Basophils Absolute Auto 0.1 X10*3/uL (0.0-0.2); Basophils Percent Auto 0.9 % (0-2); Eosinophils Absolute Auto 0.4 X10*3/uL (0.0-0.4); Eosinophils Percent Auto 5.7 % (0-4); Hematocrit 38.5 % (37.0-47.0); Imm Gran Abs Auto 0.02 X10*3/uL (0.00-0.03); Imm Gran Pct Auto 0.3 % (0.0-0.4); Lymphocytes Percent Auto 29.1 % (20-40); Mean Corpuscular HGB Conc 33.8 g/dl (31.0-35.0); Mean Corpuscular Hemoglobin 31.1 pg (27.0-33.0); Mean Corpuscular Volume 92.1 fL (80.0-98.0); Mean Platelet Volume 9.6 fL (9.4-12.3); Monocytes Absolute Auto 0.7 X10*3/uL (0.1-1.2); Monocytes Percent Auto 9.9 % (2-11); Neutrophils Absolute Auto 3.8 x10*3/uL (2.0-8.3); Neutrophils Percent Auto 54.1 % (45-73); Platelet Count 259 X10*3/uL (160-400); Red Blood Count 4.18 X10*6/uL (4.20-5.50)
[2023-11-21 10:55] LABS: Alanine Aminotransferase 26 U/L (0-31); Alkaline Phosphatase 70 U/L (39-117); Anion Gap 15 (12-20); Aspartate Amino Transferase 23 U/L (5-31); Bilirubin Total 0.5 mg/dL (0.0-1.0); Blood Urea Nitrogen 22 mg/dL (9-16); Calcium 9.7 mg/dL (8.4-10.2); Carbon Dioxide 24 mmol/L (22-29); Chloride 107 mmol/L (96-108); Cholesterol 142 mg/dL (<200); Estimated Glomerular Filt Rate 47; Glucose Fasting 109 mg/dL (60-99); HDL Cholesterol 46 mg/dL (>40); LDL Cholesterol Calculated 79 mg/dL (<100); Potassium 3.4 mmol/L (3.3-5.1); Sodium 143 mmol/L (135-145); Total Protein 6.7 g/dL (6.5-8.0); Triglycerides 88 mg/dL (<150)
[2023-11-21 11:15] LABS: Vitamin D 25-OH Total 50.4 ng/mL (>30)
== END 2023-11-21 08:59 | disposition home or self-care (01) ==
LOC: HO.HMGCLDS 08:58
PROVIDERS: PCP Internal Medicine; Visit Provider Internal Medicine
DX: M51.36 Other intervertebral disc degeneration, lumbar region (principal); I10 Essential (primary) hypertension; E78.5 Hyperlipidemia, unspecified; F41.9 Anxiety disorder, unspecified; Z78.0 Asymptomatic menopausal state; E55.9 Vitamin D deficiency, unspecified
CPT/HCPCS: 36415; 71045; 72100; 80053; 80061; 82306; 84443; 85025

== ENCOUNTER 2023-12-06 11:27 | Outpatient (AMB) | payer OTHER, SELFPAY ==
[2023-12-06 12:43] VITALS: BP 114/66; PULSE 55; O2SAT 98; BMI 28.2
--- NOTE | 2023-12-06 12:43 | MHC.PC.OV ---
Vital Signs 12/06/23 12:43 Height 5 ft 6 in Weight 175 lb BMI 28.2 BP 114/66 Blood Pressure Location Lt brachial Position Sitting Pulse 55 Pulse Source Pulse Oximeter Pulse Oximetry (%) 98 Oxygen Delivery Method Room Air Intake Visit Reasons: Sciatic pain Intake Note: Pt is here today for a sick visit. Pt c/o lower back pain that goes down her legs for 5 days. Allergies Penicillins Allergy (Intermediate, Verified 12/06/23 12:49) Hives Medication List - Last Reconciled 12/06/23 by Ilana Edouard MD amlodipine 5 mg PO DAILY atorvastatin 40 mg PO DAILY baclofen 10 mg PO BEDTIME ketoconazole 2% 1 appl topical DAILY methylcellulose (laxative) (Citrucel) 500 mg PO BID metoprolol succinate ER 50 mg PO DAILY prednisone 20 mg PO DAILY semaglutide (Ozempic) 0.5 mg (0.736 mL) subcut QWEEK sertraline 50 mg PO DAILY triamterene-hydrochlorothiazid 37.5-25 mg 1 tab PO DAILY Tobacco use date assessed: 11/04/23 Dental Screening Dental Screen Date: 11/04/23 HPI Sciatic pain HPI Details Pt c/o L side LBP radiating to LLE for 5 days after lifting heavy bags of mulch. Patient denies weakness or numbness in extremities change in bladder or bowel function. Hypertension hyperlipidemia are controlled on current medications [facility] Medical History (Updated 11/04/23 @ 15:18 by Ilana Edouard MD) Submandibular gland infection Annual physical exam Hyperglycemia Asthma Cough Bronchitis Hematuria Enlarged thyroid gland Family history- stomach cancer Liver hemangioma History of mammogram Chronic edema Hyperlipidemia HTN (hypertension) Sciatica Surgical History H/O colonoscopy H/O shoulder surgery Family History (Updated 11/04/23 @ 14:19 by JOSÉ MANUEL Morales) Father No problems noted. Mother No problems noted. Sister No problems noted. Social History Housing: House Are you a primary healthcare representative to a significant other at home: No Do you presently have visiting nurse or other home services: No Alcohol intake: never Patient Tobacco Use Status: Never used Tobacco e-Cigarette/Vaping Use: Never Used service: No Current occupational status: retired Cognitive needs: No Hearing needs: No Vision needs: Yes Questionnaire Thrive Questionnaire Date Thrive assessed: 11/04/23 IRWIN-7 AMB Questionnaire IRWIN-7 Date IRWIN - 7 assessed: 11/04/23 Source: Developed by Drs. Jacoby Bernal, Lawanda Lu, Carlos Manuel Bills and colleagues, with an educational joel from [employer]. Review of Systems Const All systems reviewed & are unremarkable except as noted in HPI and below ENT Reports no additional complaints Card Reports no additional complaints Resp Reports no additional complaints GI Reports no additional complaints Reports no additional complaints Physical exam (Primary Care) Vital Signs: Last Vital Signs Pulse 48 L 12/06/23 12:43 BP 114/66 12/06/23 12:43 Pulse Ox 98 12/06/23 12:43 Oxygen Delivery Method Room Air 12/06/23 12:43 BMI result Body Mass Index 28.2 Tobacco/Smoking Status: Tobacco use Status Tobacco use date assessed 11/04/23 12/06/23 12:44 Patient Tobacco Use Status Never used Tobacco 12/06/23 12:44 e-Cigarette/Vaping Use Never Used 12/06/23 12:44 Thrive Assessment: Date of Thrive Assessment Date Thrive assessed 11/04/23 12/06/23 12:44 Const General: no acute distress HENMT Head: Yes normal to inspection Resp Effort & Inspection: normal respiratory effort Auscultation: clear to auscultation bilaterally Cardio Rhythm: regular rhythm Heart sounds: S1 normal heart sound present and S2 normal heart sound present Back/Spine/Pelvis Other: Paraspinal tenderness in the lower lumbar region left more than right, straight leg rising 45 degrees on the left 90 degrees on the right, deep tendon reflexes 2+ bilaterally, motor strength 5/5 Assessment and Plan Assessment & Plan (1) Sciatica: Code(s): M54.30 - Sciatica, unspecified side Plan: Prednisone taper and baclofen are prescribed and supportive care discussed with the patient (2) Hyperlipidemia: Code(s): E78.5 - Hyperlipidemia, unspecified Plan: Continue statin (3) HTN (hypertension): Code(s): I10 - Essential (primary) hypertension Plan: Continue current medications Medications: New prednisone 2 tabl qd for 4 days, then 1 tabl qd for 4 days 20 mg PO DAILY 12 tabs 0RF baclofen 10 mg PO BEDTIME 30 tabs 0RF semaglutide (Ozempic) 0.5 mg (0.736 mL) subcut QWEEK 9 mL 0RF Coding Level of Care Code Est Pt Level 3 (39174) Diagnoses Sciatica M54.30 Hyperlipidemia E78.5 HTN (hypertension) I10
== END 2023-12-06 13:28 | disposition home or self-care (01) ==
PROVIDERS: PCP Internal Medicine; Visit Provider Internal Medicine
DX: M54.30 Sciatica, unspecified side (principal); E78.5 Hyperlipidemia, unspecified; I10 Essential (primary) hypertension
CPT/HCPCS: 99213

== ENCOUNTER 2023-12-09 08:22 | Outpatient (REF) | payer OTHER, SELFPAY ==
--- NOTE | ~2023-12-09 | MM_ITS ---
EXAMINATION: BONE DENSITOMETRY CLINICAL INDICATION: Asymptomatic menopausal state. COMPARISON: Baseline BD dated 05/23/2019. TECHNIQUE: Using a Jaco [employer]arsi DXA System (software version: 13.1) manufactured by [employer], dual-energy x-ray absorptiometry was performed of the lumbar spine and left hip. The images are of good technical quality. Summary results are attached. FINDINGS: LEFT FEMUR, NECK: Current: BMD 0.841 g/cm2, Z-score 0.0, T-score -1.4, osteopenia. Baseline: BMD 0.830 g/cm2. LEFT FEMUR, TOTAL: Current: BMD 0.908 g/cm2, Z-score 0.4, T-score -0.8, normal, 5.0% decrease from baseline (<5% change is not significant). Baseline: BMD 0.865 g/cm2. AP SPINE L1-L2 (excluding L3 and L4): The data of L1-L4 has been changed to exclude the L3 and L4 vertebral bodies, because degenerative sclerosis at these levels may cause overestimation of lumbar spine density. Current: BMD 0.910 g/cm2, Z-score -1.1, T-score -2.1, osteopenia, 1.7% decrease from baseline (<5% change is not significant). Baseline: BMD 0.926 g/cm2. IDENTIFIED RISK FACTORS: Menopause, hysterectomy, bilateral oophorectomy. HISTORY OF FRACTURE: None listed. MEDICATIONS: None listed. MM/XR DEXA axial skeleton IMPRESSION: 1. DIAGNOSIS: Osteopenia based on the lowest T-score value of -2.1 in the lumbar spine applying World Health Organization criteria. 2. 10-YEAR FRACTURE RISK PREDICTION, FRAX: Major osteoporotic fracture (clinical spine, forearm, hip or shoulder) 10.3%. Hip fracture 1.8%. 3. Treatment Recommendations: NOF guidelines recommend consideration for treatment in postmenopausal women and men age 50 and older presenting with the following: -A hip or vertebral (clinical or morphometric) fracture. -T-score less than or equal to -2.5 at the femoral neck or spine after appropriate evaluation to exclude secondary causes. -Low bone mass at the hip or spine and a 10-year fracture probability by FRAX of greater than or equal to 3% for hip fracture or greater than or equal to 20% for major osteoporotic fracture based on the [place] adapted WHO algorithm. 4. Other Recommendations: All treatment decisions require clinical judgment and consideration of individual patient factors, including patient preferences, comorbidities, previous drug use, risk factors not captured in the FRAX model (e.g. frailty, falls, vitamin D deficiency, increased bone turnover, interval significant decline in bone density) and possible under or overestimation of fracture risk by FRAX. Additional medical evaluation for secondary cause of low bone mineral density may be appropriate. FUTURE SCAN RECOMMENDATION: People with diagnosed cases of osteoporosis or at high risk for fracture should have regular bone mineral density tests. For patients eligible for Medicare, routine testing is allowed once every 2 years. The testing frequency can be increased to one year for patients who have rapidly progressing disease, those who are receiving or discontinuing medical therapy to restore bone mass, or have additional risk factors.
== END 2023-12-09 08:23 | disposition home or self-care (01) ==
LOC: HO.MAMMO 08:22
PROVIDERS: Visit Provider Internal Medicine
DX: Z13.820 Encounter for screening for osteoporosis (principal); Z78.0 Asymptomatic menopausal state
CPT/HCPCS: 77080

== ENCOUNTER 2023-12-21 15:10 | Outpatient (AMB) | payer OTHER, SELFPAY ==
--- NOTE | 2023-12-21 15:51 | MHC.OFFWIV ---
Intake Vital Signs 12/21/23 15:52 Height 5 ft 6 in Weight 183 lb BMI 29.5 BP 118/72 Blood Pressure Location Lt brachial Position Sitting Pulse 59 Pulse Source Pulse Oximeter Temp 98.7 F Temp Source Oral Pulse Oximetry (%) 98 Oxygen Delivery Method Room Air Intake Visit Reasons: EP lft leg swelling/pain inside leg Sciatic pain Intake Note: Pt here c/o LT leg swelling/pain/ sciatic pain. ongoing Patient Tobacco Use Status: Never used Tobacco Allergies Penicillins Allergy (Intermediate, Verified 12/21/23 15:51) Hives Do you need a note to return to daycare/school/sports/work: No HPI HPI Comments History of Present Illness Details Patient is a 73-year-old female complaining of left leg swelling and pain. She states she saw her primary care doctor 2 weeks ago and was diagnosed with sciatica, took the prednisone and baclofen and her sciatic pain got better however she still has swelling and pain in her left calf. She states there was some discoloration that has since resolved. 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 She denies any history of blood clots or shortness of breath or fevers. [facility] Medical History (Updated 12/21/23 @ 16:07 by Shirley Mo PA-C) Submandibular gland infection Annual physical exam Hyperglycemia Asthma Cough Bronchitis Hematuria Enlarged thyroid gland Family history- stomach cancer Liver hemangioma History of mammogram Chronic edema Hyperlipidemia HTN (hypertension) Sciatica Surgical History H/O colonoscopy H/O shoulder surgery Family History (Updated 11/04/23 @ 14:19 by JOSÉ MANUEL Morales) Father No problems noted. Mother No problems noted. Sister No problems noted. Social History Housing: House Are you a primary daytime caregiver to a significant other at home: No Do you presently have visiting nurse or other home services: No Alcohol intake: never Patient Tobacco Use Status: Never used Tobacco e-Cigarette/Vaping Use: Never Used service: No Current occupational status: retired Cognitive needs: No Hearing needs: No Vision needs: Yes Review of Systems Const All systems reviewed & are unremarkable except as noted in HPI and below Physical Exam Vital Signs: Last Vital Signs Temp 98.7 F 12/21/23 15:52 Pulse 59 12/21/23 15:52 BP 118/72 12/21/23 15:52 Pulse Ox 98 12/21/23 15:52 Oxygen Delivery Method Room Air 12/21/23 15:52 BMI result Body Mass Index 29.5 Const General: cooperative, healthy appearing, comfortable, no acute distress and well developed Orientation/consciousness: patient oriented x3 Limitations: no limitations Neuro General: patient oriented x3 Extrem Left lower extremity: lower leg (+ shanell, overall swelling, normal ROM, NVI intact) Details: no erythema, no abrasions, no lacerations, no ecchymosis and no unusual warmth Assessment & Plan Assessment & Plan (1) Left leg swelling: Code(s): M79.89 - Other specified soft tissue disorders Plan: Ultrasound showed no evidence of DVT in left lower extremity, let patient know she can Sekou wrap the area to try to reduce the swelling as well as rest it and use Aleve temporarily. If the symptoms persist, she should follow up with her primary care doctor. Plan see above Orders: Orders US venous duplex LE LT 12/21/23 M79.89 - Other specified soft tissue disorders Coding Level of Care Code Est Pt Level 4 (49415) Diagnoses Left leg swelling M79.89
[2023-12-21 15:52] VITALS: BP 118/72; PULSE 59; TEMP 37.1; O2SAT 98; BMI 29.5
== END 2023-12-21 16:51 | disposition home or self-care (01) ==
PROVIDERS: Visit Provider Physician Assistant
DX: M79.89 Other specified soft tissue disorders (principal)
CPT/HCPCS: 99214

== ENCOUNTER 2023-12-21 16:15 | Outpatient (REF) | payer OTHER, SELFPAY ==
--- NOTE | ~2023-12-21 | US_ITS ---
EXAMINATION: US VENOUS ULTRASOUND WITH DOPPLER LOWER EXTREMITY, LEFT CLINICAL INFORMATION: Swelling. COMPARISON: None available. TECHNIQUE: Ultrasound of the deep veins is performed from the hip to the calf with compression sonography and color and pulse Doppler assessment. Spectral analysis with color-flow imaging is performed. FINDINGS: There is normal venous compression and respiratory variation and augmented flow. The visualized common femoral vein, superficial femoral vein, profunda femoral vein, popliteal vein, and the trifurcation region shows no evidence of deep venous thrombosis. There is no significant popliteal fossa cyst. If the patient's symptoms persist, followup ultrasound in 5 days 7 days might be of value to exclude proximal propagation from a non-visualized calf vein. US/US venous duplex LE LT IMPRESSION: No DVT demonstrated in the left lower extremity.
== END 2023-12-21 16:16 | disposition home or self-care (01) ==
LOC: HO.HMGCX 16:15
PROVIDERS: PCP Internal Medicine; Visit Provider Physician Assistant
DX: R79.89 Other specified abnormal findings of blood chemistry (principal)
CPT/HCPCS: 93971

== ENCOUNTER 2024-04-10 11:46 | Outpatient (REF) | payer OTHER, SELFPAY | END 2024-04-10 11:47 | disposition home or self-care (01) | LOC: HO.LAB 11:46 | PROVIDERS: PCP Internal Medicine | DX: N30.00 Acute cystitis without hematuria (principal); B96.20 Unspecified Escherichia coli [E. coli] as the cause of diseases classified elsewhere | CPT/HCPCS: 81003; 87086; 87088; 87186 ==

== ENCOUNTER 2024-04-10 11:46 | Outpatient (AMB) | payer OTHER, SELFPAY ==
--- NOTE | 2024-04-10 12:45 | AM.OFFWIN_ITS ---
Intake Vital Signs 04/10/24 12:46 Height 5 ft 6 in Weight 185 lb BMI 29.9 BP 138/82 Blood Pressure Location Lt brachial Position Sitting Pulse 74 Pulse Source Pulse Oximeter Pulse Oximetry (%) 97 Oxygen Delivery Method Room Air Intake Visit Reasons: EP-lt side belly zavala Intake Note: Patient here for lower left abdominal pain that started yesterday, she states the pain is a very sharp pain that is constant. Patient Tobacco Use Status: Never used Tobacco Allergies Penicillins Allergy (Intermediate, Verified 04/10/24 12:47) Hives Do you need a note to return to daycare/school/sports/work: No HPI HPI Comments History of Present Illness Details Patient is a 74-year-old female complaining left-sided lower abdominal pain since 03:00 o'clock this morning. She states the pain woke her up out of sleep she describes the pain as sharp and shooting. She tells me the pain comes and goes on its own. Nothing seems to make it better or worse. She denies any changes in her bowel habits or urination, she denies nausea vomiting diarrhea fevers, burning with urination or blood in her urine. She denies any bloody or black stools. She denies a history of diverticulitis and states her last colonoscopy was about 7 years ago and was normal. She states she is passing gas normally in does take medicine to help her pass gas but this does not feel like that and she has not tried taking any of that medication since pain started. [facility] Medical History (Updated 04/10/24 @ 13:04 by Shirley Mo PA-C) Submandibular gland infection Annual physical exam Hyperglycemia Asthma Cough Bronchitis Hematuria Enlarged thyroid gland Family history- stomach cancer Liver hemangioma History of mammogram Chronic edema Hyperlipidemia HTN (hypertension) Sciatica Surgical History H/O colonoscopy H/O shoulder surgery Family History (Updated 11/04/23 @ 14:19 by JOSÉ MANUEL Morales) Father No problems noted. Mother No problems noted. Sister No problems noted. Social History Housing: House Are you a primary zoo caretaker to a significant other at home: No Do you presently have visiting nurse or other home services: No Alcohol intake: never Patient Tobacco Use Status: Never used Tobacco e-Cigarette/Vaping Use: Never Used service: No Current occupational status: retired Cognitive needs: No Hearing needs: No Vision needs: Yes Review of Systems Const All systems reviewed & are unremarkable except as noted in HPI and below Physical Exam Vital Signs: Last Vital Signs Pulse 74 04/10/24 12:46 BP 138/82 04/10/24 12:46 Pulse Ox 97 04/10/24 12:46 Oxygen Delivery Method Room Air 04/10/24 12:46 BMI result Body Mass Index 29.9 Const General: cooperative, healthy appearing, comfortable, no acute distress and well developed Orientation/consciousness: patient oriented x3 Limitations: no limitations HEENT Head: Yes normal to inspection Ears: hearing grossly normal bilaterally General nose exam: Normal external nose present Face and sinus: Yes normal facial exam Eyes General: appearance normal, both eyes and all related structures Neck Neck: Yes normal visual inspection and Yes full ROM Resp Effort & Inspection: normal respiratory effort and able to speak in complete sentences GI Inspection: Yes normal to inspection Palpation (GI): Soft to palpation and Tenderness to palpation present (GI) in the LLQ Auscultation: normal bowel sounds General: Yes CVA tenderness on the left Back/Spine/Pelvis Back: CVA tenderness Skin General skin exam: no rashes or lesions noted Neuro General: patient oriented x3 Extrem General: Yes normal to inspection Assessment & Plan Assessment & Plan (1) UTI (urinary tract infection): Code(s): N39.0 - Urinary tract infection, site not specified Qualifiers: Urinary tract infection type: acute cystitis Hematuria presence: without hematuria Qualified Code(s): N30.00 - Acute cystitis without hematuria Plan: According to the records, patient's last colonoscopy was 9 years ago and she did have polyps. It looks like she scheduled 1 in 2021 but then canceled. Physical exam was remarkable for CVA tenderness however her UA is negative for blood and positive for nitrites and has 15 leukocyte esterase so I will treat for a UTI. With the patient's allergies to PCNs, I will prescribe Bactrim. Plan see above Medications: New sulfamethoxazole-trimethoprim 800-160 mg (Bactrim DS) 1 tab PO Q12H 14 tabs 0RF Coding Level of Care Code Est Pt Level 3 (16159) Diagnoses Acute cystitis without hematuria N30.00 Urinary tract infection type: acute cystitis Hematuria presence: without hematuria
[2024-04-10 12:46] VITALS: BP 138/82; PULSE 74; O2SAT 97; BMI 29.9
== END 2024-04-10 14:12 | disposition home or self-care (01) ==
PROVIDERS: PCP Internal Medicine; Visit Provider Physician Assistant
DX: Z13.9 Encounter for screening, unspecified (principal); N30.00 Acute cystitis without hematuria

== ENCOUNTER 2024-05-10 11:11 | Outpatient (AMB) | payer OTHER, SELFPAY ==
--- NOTE | 2024-05-10 11:16 | MHC.PC.OV ---
Vital Signs 05/10/24 11:18 Height 5 ft 6 in Weight 185 lb BMI 29.9 BP 122/62 Blood Pressure Location Lt brachial Position Sitting Pulse 55 Pulse Source Pulse Oximeter Pulse Oximetry (%) 97 Oxygen Delivery Method Room Air Intake Visit Reasons: Walk-in follow up visit Intake Note: Pt is here today for a follow up visit after being seen in walk in. Allergies Penicillins Allergy (Intermediate, Verified 05/10/24 11:20) Hives Medication List - Last Reconciled 05/10/24 by Ilana Edouard MD amlodipine 5 mg PO DAILY atorvastatin 40 mg PO DAILY baclofen 10 mg PO BEDTIME donepezil 5 mg PO DAILY ketoconazole 2% 1 appl topical DAILY methylcellulose (laxative) (Citrucel) 500 mg PO BID metoprolol succinate ER 50 mg PO DAILY sertraline 50 mg PO DAILY triamterene-hydrochlorothiazid 37.5-25 mg 1 tab PO DAILY Tobacco use date assessed: 05/10/24 Fall risk assessment: No Falls in past year Last assessed Fall Risk: 05/10/24 Dental Screening Dental Screen Date: 11/04/23 HPI Walk-in follow up visit HPI Details Patient presents for the follow-up of walk-in visit. She reports persistent discomfort in the lower abdomen and left flank area no nausea vomiting change in bowel habits hematuria dysuria fever or chills. She completed course of Bactrim 2 weeks ago. Patient complains of bilateral knee pain and stiffness worse when walking down the stairs for years getting worse over last few months. She denies any injury or joint swelling [facility] Medical History (Updated 05/10/24 @ 11:55 by Ilana Edouard MD) Submandibular gland infection Annual physical exam Hyperglycemia Asthma Cough Bronchitis Hematuria Enlarged thyroid gland Family history- stomach cancer Liver hemangioma History of mammogram Chronic edema Hyperlipidemia HTN (hypertension) Sciatica Surgical History H/O colonoscopy H/O shoulder surgery Family History (Updated 11/04/23 @ 14:19 by JOSÉ MANUEL Morales) Father No problems noted. Mother No problems noted. Sister No problems noted. Social History Housing: House Are you a primary summer child caregiver to a significant other at home: No Do you presently have visiting nurse or other home services: No Alcohol intake: never Patient Tobacco Use Status: Never used Tobacco e-Cigarette/Vaping Use: Never Used service: No Current occupational status: retired Cognitive needs: No Hearing needs: No Vision needs: Yes Questionnaire Thrive Questionnaire Date Thrive assessed: 11/04/23 IRWIN-7 AMB Questionnaire IRWIN-7 Date IRWIN - 7 assessed: 11/04/23 Source: Developed by Drs. Jacoby Bernal, Lawanda Lu, Carlos Manuel Bills and colleagues, with an educational joel from [employer]. Review of Systems Const All systems reviewed & are unremarkable except as noted in HPI and below Eyes Reports no additional complaints ENT Reports no additional complaints Card Reports no additional complaints Resp Reports no additional complaints GI Reports no additional complaints Reports no additional complaints Physical exam (Primary Care) Vital Signs: Last Vital Signs Pulse 55 05/10/24 11:18 BP 122/62 05/10/24 11:18 Pulse Ox 97 05/10/24 11:18 Oxygen Delivery Method Room Air 05/10/24 11:18 BMI result Body Mass Index 29.9 Tobacco/Smoking Status: Tobacco use Status Tobacco use date assessed 05/10/24 05/10/24 11:21 Patient Tobacco Use Status Never used Tobacco 05/10/24 11:21 e-Cigarette/Vaping Use Never Used 05/10/24 11:18 Thrive Assessment: Date of Thrive Assessment Date Thrive assessed 11/04/23 05/10/24 11:18 Const General: no acute distress HENMT Face and sinus: Yes normal facial exam Neck Neck: Yes supple Resp Effort & Inspection: normal respiratory effort Auscultation: clear to auscultation bilaterally Cardio Rhythm: regular rhythm Heart sounds: S1 normal heart sound present and S2 normal heart sound present GI Inspection: Yes normal to inspection Palpation (GI): Soft to palpation Percussion: Yes normal to percussion Auscultation: normal bowel sounds Coding Level of Care Code Est Pt Level 4 (84547) Complex EM visit Add On G2211 Diagnoses Acute cystitis without hematuria N30.00 Hematuria presence: without hematuria Urinary tract infection type: acute cystitis HTN (hypertension) I10 Hyperlipidemia E78.5 Bilateral knee pain M25.561; M25.562 Annual physical exam Z00.00 Assessment & Plan Assessment & Plan (1) UTI (urinary tract infection): Code(s): N39.0 - Urinary tract infection, site not specified Category: Medical Qualifiers: Hematuria presence: without hematuria Urinary tract infection type: acute cystitis Qualified Code(s): N30.00 - Acute cystitis without hematuria Plan: Repeat urine culture after treatment for persistent symptoms (2) HTN (hypertension): Code(s): I10 - Essential (primary) hypertension Category: Medical Plan: Continue current medications (3) Hyperlipidemia: Code(s): E78.5 - Hyperlipidemia, unspecified Category: Medical Plan: Continue statin (4) Bilateral knee pain: Code(s): M25.561 - Pain in right knee; M25.562 - Pain in left knee Category: Medical Plan: Check x-rays and referred for physical therapy (5) Annual physical exam: Code(s): Z00.00 - Encounter for general adult medical examination without abnormal findings Category: Medical Plan: Patient refused colonoscopy check Cologuard Orders: Orders Urine Culture Today N30.00 - Acute cystitis without hematuria Comprehensive [place]. Panel Fast Today E78.5 - Hyperlipidemia, unspecified, I10 - Essential (primary) hypertension, M25.561 - Pain in right knee, M25.562 - Pain in left knee, N30.00 - Acute cystitis without hematuria XR knee standing BI Today M25.561 - Pain in right knee, M25.562 - Pain in left knee Complete Blood Count Auto Diff Today E78.5 - Hyperlipidemia, unspecified, I10 - Essential (primary) hypertension, M25.561 - Pain in right knee, M25.562 - Pain in left knee, N30.00 - Acute cystitis without hematuria PT Evaluation and Treatment Today M25.561 - Pain in right knee, M25.562 - Pain in left knee Lipid Panel Today E78.5 - Hyperlipidemia, unspecified, I10 - Essential (primary) hypertension, M25.561 - Pain in right knee, M25.562 - Pain in left knee, N30.00 - Acute cystitis without hematuria Hemoglobin A1c Today E78.5 - Hyperlipidemia, unspecified, I10 - Essential (primary) hypertension, M25.561 - Pain in right knee, M25.562 - Pain in left knee, N30.00 - Acute cystitis without hematuria Referrals Cologuard Test E78.5 - Hyperlipidemia, unspecified, I10 - Essential (primary) hypertension, M25.561 - Pain in right knee, M25.562 - Pain in left knee, N30.00 - Acute cystitis without hematuria, Z12.11 - Encounter for screening for malignant neoplasm of colon, Z12.12 - Encounter for screening for malignant neoplasm of rectum Medications: New donepezil 5 mg PO DAILY 90 tabs 3RF Discontinued semaglutide (Ozempic) Discontinued Reason: Doctor's Order 0.5 mg (0.736 mL) subcut QWEEK 9 mL 0RF
[2024-05-10 11:18] VITALS: BP 122/62; PULSE 55; O2SAT 97; BMI 29.9
== END 2024-05-10 12:09 | disposition home or self-care (01) ==
LOC: HO.HMCC 11:12
PROVIDERS: PCP Internal Medicine; Visit Provider Internal Medicine
DX: N30.00 Acute cystitis without hematuria (principal); I10 Essential (primary) hypertension; E78.5 Hyperlipidemia, unspecified; M25.561 Pain in right knee; M25.562 Pain in left knee; Z00.00 Encounter for general adult medical examination without abnormal findings

== ENCOUNTER 2024-05-10 11:11 | Outpatient (REF) | payer OTHER, SELFPAY ==
[2024-05-10 12:58] LABS: MANUAL DIFF FLAG NO
[2024-05-10 13:28] LABS: Alanine Aminotransferase 27 U/L (0-31); Albumin Level 4.2 g/dL (3.5-5.0); Alkaline Phosphatase 74 U/L (39-117); Anion Gap 12 (12-20); Aspartate Amino Transferase 26 U/L (5-31); Bilirubin Total 0.6 mg/dL (0.0-1.0); Blood Urea Nitrogen 15 mg/dL (9-16); Calcium 9.9 mg/dL (8.4-10.2); Carbon Dioxide 27 mmol/L (22-29); Chloride 105 mmol/L (96-108); Cholesterol 148 mg/dL (<200); Estimated Glomerular Filt Rate 53; Glucose Fasting 99 mg/dL (60-99); HDL Cholesterol 44 mg/dL (>40); LDL Cholesterol Calculated 77 mg/dL (<100); Potassium 3.7 mmol/L (3.3-5.1); Sodium 140 mmol/L (135-145); Triglycerides 137 mg/dL (<150)
[2024-05-10 13:38] LABS: Basophils Absolute Auto 0.1 X10*3/uL (0.0-0.2); Basophils Percent Auto 0.8 % (0-2); Eosinophils Absolute Auto 0.2 X10*3/uL (0.0-0.4); Eosinophils Percent Auto 3.3 % (0-4); Hematocrit 40.1 % (37.0-47.0); Hemoglobin 13.7 g/dl (12.0-16.0); Imm Gran Abs Auto 0.09 X10*3/uL (0.00-0.03); Imm Gran Pct Auto 1.2 % (0.0-0.4); Lymphocytes Absolute Auto 1.8 X10*3/uL (1.2-4.9); Mean Corpuscular HGB Conc 34.2 g/dl (31.0-35.0); Mean Corpuscular Volume 90.7 fL (80.0-98.0); Mean Platelet Volume 9.7 fL (9.4-12.3); Monocytes Absolute Auto 0.6 X10*3/uL (0.1-1.2); Neutrophils Absolute Auto 4.6 x10*3/uL (2.0-8.3); Neutrophils Percent Auto 62.7 % (45-73); Platelet Count 220 X10*3/uL (160-400); Red Blood Count 4.42 X10*6/uL (4.20-5.50); Red Cell Distribution Width 12.4 % (11.0-16.0); White Blood Count 7.4 X10*3/uL (4.8-10.8)
[2024-05-10 14:01] LABS: Estimated Average Glucose 108 mg/dL; Hemoglobin A1C 130.5354 umol/L; Hemoglobin A1c % 5.4 % (<6.0); Total Hemoglobin (HGBA1C) 3637.1014 umol/L
== END 2024-05-10 11:12 | disposition home or self-care (01) ==
LOC: HO.HMGCX 11:11
PROVIDERS: PCP Internal Medicine; Visit Provider Internal Medicine
DX: N30.00 Acute cystitis without hematuria (principal); I10 Essential (primary) hypertension; E78.5 Hyperlipidemia, unspecified; M25.561 Pain in right knee; M25.562 Pain in left knee; Z13.1 Encounter for screening for diabetes mellitus
CPT/HCPCS: 36415; 73565; 80053; 80061; 83036; 85025; 87086; 87088; 87186

== ENCOUNTER 2024-05-24 11:27 | Outpatient (REF) | payer OTHER, SELFPAY | END 2024-05-24 11:28 | disposition home or self-care (01) | LOC: HO.LNP 11:27 | PROVIDERS: PCP Internal Medicine; Visit Provider Physician Assistant | DX: N30.00 Acute cystitis without hematuria (principal) | CPT/HCPCS: 81003; 87086 ==

== ENCOUNTER 2024-05-24 11:27 | Outpatient (AMB) | payer OTHER, SELFPAY ==
--- NOTE | 2024-05-24 11:35 | MHC.OFFWIV ---
Intake Vital Signs 05/24/24 11:44 BP 110/74 Blood Pressure Location Rt brachial Position Sitting Pulse 58 Pulse Source Pulse Oximeter Pulse Oximetry (%) 98 Oxygen Delivery Method Room Air Intake Visit Reasons: EP ? UTI still having symptoms was here before Intake Note: Patient here for UTI symptoms, she states she just finished a course of nitrofurantoin and has not noticed a change. Patient Tobacco Use Status: Never used Tobacco Allergies Penicillins Allergy (Intermediate, Verified 05/24/24 11:43) Hives Do you need a note to return to daycare/school/sports/work: No HPI HPI Comments History of Present Illness Details The patient is a 74-year-old female presenting with recurrent urinary tract infection (UTI). The initial episode was on April 10, when she was found to have a UTI with Escherichia coli cultured and was treated with Bactrim. Despite completing the course, she remained symptomatic. On May 10, during the physical exam with Dr. Edouard, another culture tested positive for E. coli, and she was subsequently treated with Macrobid for seven days. However, symptoms persist with notable continuous back pain, no improvement in symptomatology, and no episodes of fever or hematuria. The patient denies a history of kidney stones. Current medications include donepezil for dementia. She was educated about possible urinary infections due to short urethra as a female. The consistent UTI since April suggests persistence of infection, likely resistant to previous antibiotics which are limited options due to her penicillin allergy. [facility] Medical History (Updated 05/10/24 @ 11:55 by Ilana Edouard MD) Submandibular gland infection Annual physical exam Hyperglycemia Asthma Cough Bronchitis Hematuria Enlarged thyroid gland Family history- stomach cancer Liver hemangioma History of mammogram Chronic edema Hyperlipidemia HTN (hypertension) Sciatica Surgical History H/O colonoscopy H/O shoulder surgery Family History (Updated 11/04/23 @ 14:19 by JOSÉ MANUEL Morales) Father No problems noted. Mother No problems noted. Sister No problems noted. Social History Housing: House Are you a primary health care marketing specialist to a significant other at home: No Do you presently have visiting nurse or other home services: No Alcohol intake: never Patient Tobacco Use Status: Never used Tobacco e-Cigarette/Vaping Use: Never Used service: No Current occupational status: retired Cognitive needs: No Hearing needs: No Vision needs: Yes Review of Systems Const All systems reviewed & are unremarkable except as noted in HPI and below Physical Exam Vital Signs: Last Vital Signs Pulse 58 05/24/24 11:44 BP 110/74 05/24/24 11:44 Pulse Ox 98 05/24/24 11:44 Oxygen Delivery Method Room Air 05/24/24 11:44 Results AMB Urinalysis, Automated UA Leukoctes 0 Kaleb/uL Last Edit by Carlee Holley CCM on 05/24/24 11:56 UA Nitrite Negative Last Edit by Carlee Holley [facility] on 05/24/24 11:56 UA Urobilinogen 0.2 mg/dL Last Edit by Carlee Holley [facility] on 05/24/24 11:56 UA Protein 0 mg/dL Last Edit by Carlee Holley [facility] on 05/24/24 11:56 UA pH 6.0 Last Edit by Carlee Holley [facility] on 05/24/24 11:56 UA Blood 0 Rock/uL Last Edit by Carlee Holley [facility] on 05/24/24 11:56 UA Specific [place] 1.025 Last Edit by Carlee Holley [facility] on 05/24/24 11:56 UA Ketone Positive Last Edit by Carlee Holley [facility] on 05/24/24 11:56 UA Bilirubin 0 mg/dL Last Edit by Carlee Holley [facility] on 05/24/24 11:56 UA Glucose 0 mg/dL Last Edit by Carlee Holley [facility] on 05/24/24 11:56 Results Reviewed Results Reviewed: Laboratory Last Values Urine pH (Auto) 6.0 05/24/24 11:55 Specific [place] (Auto) 1.025 05/24/24 11:55 Urine Protein (Auto) 0 mg/dL 05/24/24 11:55 Glucose (UA)(Auto) 0 mg/dL 05/24/24 11:55 Urine Ketones (Auto) Positive 05/24/24 11:55 Urine Blood (Auto) 0 Rock/uL 05/24/24 11:55 Urine Nitrite (Auto) Negative 05/24/24 11:55 Urine Bilirubin (Auto) 0 mg/dL 05/24/24 11:55 Urine Urobilinogen (Auto) 0.2 mg/dL 05/24/24 11:55 Leukocyte Esterase (Auto) 0 Kaleb/uL 05/24/24 11:55 Assessment & Plan Assessment & Plan (1) UTI (urinary tract infection): Code(s): N39.0 - Urinary tract infection, site not specified Qualifiers: Hematuria presence: without hematuria Urinary tract infection type: acute cystitis Qualified Code(s): N30.00 - Acute cystitis without hematuria Plan: 1. Recurrent Urinary Tract Infection UTI: - Prescribe ciprofloxacin 500 mg twice daily for seven days as the E. coli strain shows good sensitivity to ciprofloxacin, but ensure that the patient temporarily discontinues donepezil while taking ciprofloxacin due to potential drug interaction. UA neg for nitrites, or leuks or blood. Sent urine culture. - Advise the patient to avoid exercise and any activities that exert undue stress on tendons to prevent tendon injury while on ciprofloxacin. - Monitor symptom resolution by giving it up to 10 days. If no improvement, the patient should return to urgent care for further evaluation before her planned travel to [place] in July. - Discuss and reassure the patient regarding anticipated resolution prior to her scheduled travel. Patient was informed and verbally consented to the use of an ambient scribe for clinic note documentation during this visit. Orders: Orders AMB Urinalysis Automated Today Z13.9 - Encounter for screening, unspecified Urine Culture Today N30.00 - Acute cystitis without hematuria Medications: New ciprofloxacin HCl 250 mg PO Q12H 14 tabs 0RF Coding Level of Care Code Est Pt Level 4 (78953) Diagnoses Acute cystitis without hematuria N30.00 Hematuria presence: without hematuria Urinary tract infection type: acute cystitis
[2024-05-24 11:44] VITALS: BP 110/74; PULSE 58; O2SAT 98
== END 2024-05-24 12:36 | disposition home or self-care (01) ==
PROVIDERS: PCP Internal Medicine; Visit Provider Physician Assistant
DX: Z13.9 Encounter for screening, unspecified (principal); N30.00 Acute cystitis without hematuria

== ENCOUNTER 2024-06-05 13:33 | Outpatient (AMB) | payer OTHER, SELFPAY ==
--- NOTE | 2024-06-05 14:27 | MHC.OFFWIV ---
Intake Vital Signs 06/05/24 14:36 Weight 185 lb BP 118/72 Blood Pressure Location Rt brachial Position Sitting Pulse 52 Pulse Source Pulse Oximeter Temp 98.0 F Temp Source Oral Pulse Oximetry (%) 98 Oxygen Delivery Method Room Air Intake Visit Reasons: EP UTI? follow up after 10 days Intake Note: Patient here to follow up after finishing antibiotics for UTI Patient Tobacco Use Status: Never used Tobacco Allergies Penicillins Allergy (Intermediate, Verified 06/05/24 14:37) Hives Do you need a note to return to daycare/school/sports/work: No HPI HPI Comments History of Present Illness Details This is a 74-year-old female with a past medical history hypertension and hyperlipidemia presenting for evaluation of recurrent urinary tract infections. Patient has been treated with 3 separate antibiotics including Bactrim, Macrobid and Cipro since April 22, 2024. Patient comes today for a recheck of her urine. She states she is feeling well, has no abdominal pain and denies any fevers, chills, urinary frequency or dysuria. Patient states her last antibiotic dose was on Tuesday. [facility] Medical History (Updated 06/05/24 @ 14:58 by Coni Walsh PA-C) Submandibular gland infection Annual physical exam Hyperglycemia Asthma Cough Bronchitis Hematuria Enlarged thyroid gland Family history- stomach cancer Liver hemangioma History of mammogram Chronic edema Hyperlipidemia HTN (hypertension) Sciatica Surgical History H/O colonoscopy H/O shoulder surgery Family History (Updated 11/04/23 @ 14:19 by JOSÉ MANUEL Morales) Father No problems noted. Mother No problems noted. Sister No problems noted. Social History Housing: House Are you a primary manager urgent care to a significant other at home: No Do you presently have visiting nurse or other home services: No Alcohol intake: never Patient Tobacco Use Status: Never used Tobacco e-Cigarette/Vaping Use: Never Used service: No Current occupational status: retired Cognitive needs: No Hearing needs: No Vision needs: Yes Review of Systems Const All systems reviewed & are unremarkable except as noted in HPI and below Denies chills, Denies fatigue and Denies fever(s) Eyes Reports no additional complaints ENT Reports no additional complaints Card Reports no additional complaints Resp Reports no additional complaints GI Reports no additional complaints Reports no additional complaints, Denies urinary frequency, Denies difficulty voiding, Denies dysuria, Denies pelvic pain, Denies urinary incontinence and Denies urinary urgency Musc Reports no additional complaints Skin/Breast Reports system reviewed and no additional complaints, except as documented Neuro Reports no additional complaints Psych Reports no additional complaints Endo Reports no additional complaints and Denies fatigue Mateo/Lymph Reports no additional complaints Aller/Immun Reports no additional complaints Physical Exam Vital Signs: Last Vital Signs Temp 98.0 F 06/05/24 14:36 Pulse 52 06/05/24 14:36 BP 118/72 06/05/24 14:36 Pulse Ox 98 06/05/24 14:36 Oxygen Delivery Method Room Air 06/05/24 14:36 Patient is afebrile. Const General: cooperative, healthy appearing, comfortable, no acute distress, well developed, alert, awake and Physically active; No acute distress or ill appearing Nutritional Appearance: average body habitus Orientation/consciousness: patient oriented x3 Limitations: no limitations GI Inspection: Yes normal to inspection Palpation (GI): Soft to palpation, nontender and no guarding Auscultation: normal bowel sounds General: Yes bladder normal to palpation and Yes no CVA tenderness Bimanual exam- vagina & uterus: bladder normal to palpation Back/Spine/Pelvis Back: no CVA tenderness Skin General skin exam: no rashes or lesions noted Neuro General: patient oriented x3 Psych Appearance: grossly normal Mental Status: mental status grossly normal Insight: Good insight present (Psych) Judgement: Good judgement present (Psych) Results Reviewed Results Reviewed: Urinalysis is reviewed. Assessment & Plan Assessment & Plan (1) Recurrent UTI: Comment: There is no evidence of an acute UTI on urinalysis. Patient will be discharged home. Code(s): N39.0 - Urinary tract infection, site not specified Plan: No further antibiotic treatment is warranted at this time. Coding Level of Care Code Est Pt Level 3 (87849) Diagnoses Recurrent UTI N39.0 Time Spent (min) 20
[2024-06-05 14:36] VITALS: BP 118/72; PULSE 52; TEMP 36.7; O2SAT 98
== END 2024-06-05 15:48 | disposition home or self-care (01) ==
PROVIDERS: PCP Internal Medicine; Visit Provider Physician Assistant
DX: Z13.9 Encounter for screening, unspecified (principal); N39.0 Urinary tract infection, site not specified

== ENCOUNTER → 2024-06-05 13:33 | Outpatient (BNVA) | payer OTHER, SELFPAY | PROVIDERS: PCP Internal Medicine; Visit Provider Physician Assistant | DX: N39.0 Urinary tract infection, site not specified (principal); I10 Essential (primary) hypertension; E78.5 Hyperlipidemia, unspecified | CPT/HCPCS: 81003 ==

== ENCOUNTER 2024-06-19 10:48 | Outpatient (AMB) | payer OTHER, SELFPAY ==
[2024-06-19 10:57] VITALS: BP 118/66; PULSE 57; O2SAT 96; BMI 31.1
--- NOTE | 2024-06-19 10:57 | A.OFFPC_ITS ---
Vital Signs 06/19/24 10:57 Height 5 ft 6 in Weight 193 lb BMI 31.1 BP 118/66 Blood Pressure Location Rt brachial Position Sitting Pulse 57 Pulse Source Pulse Oximeter Pulse Oximetry (%) 96 Oxygen Delivery Method Room Air Intake Visit Reasons: follow up Intake Note: Pt is here today for a follow up visit. Pt states that she is still having sciatica pain. Allergies Penicillins Allergy (Intermediate, Verified 06/19/24 10:57) Hives Medication List - Last Reconciled 06/19/24 by Ilana Edouard MD amlodipine 5 mg PO DAILY atorvastatin 40 mg PO DAILY baclofen 10 mg PO BEDTIME donepezil 5 mg PO DAILY ketoconazole 2% 1 appl topical DAILY methylcellulose (laxative) (Citrucel) 500 mg PO BID metoprolol succinate ER 50 mg PO DAILY sertraline 50 mg PO DAILY triamterene-hydrochlorothiazid 37.5-25 mg 1 tab PO DAILY Tobacco use date assessed: 06/19/24 Dental Screening Dental Screen Date: 11/04/23 HPI follow up HPI Details Pt presents for f/u HTN, hyperlipid, anxiety, stable on meds PFSH Medical History Submandibular gland infection Annual physical exam Hyperglycemia Asthma Cough Bronchitis Hematuria Enlarged thyroid gland Family history- stomach cancer Liver hemangioma History of mammogram Chronic edema Hyperlipidemia HTN (hypertension) Sciatica Surgical History H/O colonoscopy H/O shoulder surgery Family History Father No problems noted. Mother No problems noted. Sister No problems noted. Social History Housing: House Are you a primary child care coordinator to a significant other at home: No Do you presently have visiting nurse or other home services: No Alcohol intake: never Patient Tobacco Use Status: Never used Tobacco e-Cigarette/Vaping Use: Never Used service: No Current occupational status: retired Cognitive needs: No Hearing needs: No Vision needs: Yes Questionnaire Thrive Questionnaire Date Thrive assessed: 11/04/23 IRWIN-7 AMB Questionnaire IRWIN-7 Date IRWIN - 7 assessed: 11/04/23 Source: Developed by Drs. Jacoby Bernal, Lawanda Lu, Carlos Manuel Bills and colleagues, with an educational joel from [employer]. Review of Systems Const All systems reviewed & are unremarkable except as noted in HPI and below Reports no additional complaints Eyes Reports no additional complaints ENT Reports no additional complaints Card Reports no additional complaints Resp Reports no additional complaints GI Reports no additional complaints Reports no additional complaints Physical exam (Primary Care) Vital Signs: Last Vital Signs Pulse 57 06/19/24 10:57 BP 118/66 06/19/24 10:57 Pulse Ox 96 06/19/24 10:57 Oxygen Delivery Method Room Air 06/19/24 10:57 BMI result Body Mass Index 31.1 Tobacco/Smoking Status: Tobacco use Status Tobacco use date assessed 06/19/24 06/19/24 10:58 Patient Tobacco Use Status Never used Tobacco 06/19/24 10:58 e-Cigarette/Vaping Use Never Used 06/19/24 10:58 Thrive Assessment: Date of Thrive Assessment Date Thrive assessed 11/04/23 06/19/24 10:58 Const General: no acute distress HENMT Head: Yes normal to inspection Ears: hearing grossly normal bilaterally Mouth: Normal oral and palatal mucosa present Eyes General: appearance normal, both eyes and all related structures Neck Neck: Yes no lymphadenopathy and Yes supple Resp Effort & Inspection: normal respiratory effort Auscultation: clear to auscultation bilaterally Cardio Rhythm: regular rhythm Heart sounds: S1 normal heart sound present and S2 normal heart sound present GI Inspection: Yes normal to inspection Palpation (GI): Soft to palpation Percussion: Yes normal to percussion Auscultation: normal bowel sounds Coding Level of Care Code Est Pt Level 4 (15647) Diagnoses HTN (hypertension) I10 Hyperlipidemia E78.5 Vitamin D deficiency E55.9 Assessment & Plan Assessment & Plan (1) HTN (hypertension): Code(s): I10 - Essential (primary) hypertension Category: Medical Plan: Continue current medications (2) Hyperlipidemia: Code(s): E78.5 - Hyperlipidemia, unspecified Category: Medical Plan: Continue statin (3) Vitamin D deficiency: Code(s): E55.9 - Vitamin D deficiency, unspecified Category: Medical Plan: Continue vitamin-D supplement Orders: Orders Comprehensive Allen. Panel Fast 5 Months E55.9 - Vitamin D deficiency, unspecified, E78.5 - Hyperlipidemia, unspecified, I10 - Essential (primary) hypertension Lipid Panel 5 Months E55.9 - Vitamin D deficiency, unspecified, E78.5 - Hyperlipidemia, unspecified, I10 - Essential (primary) hypertension TSH reflex Free T4 5 Months E55.9 - Vitamin D deficiency, unspecified, E78.5 - Hyperlipidemia, unspecified, I10 - Essential (primary) hypertension Complete Blood Count Auto Diff 5 Months E55.9 - Vitamin D deficiency, unspecified, E78.5 - Hyperlipidemia, unspecified, I10 - Essential (primary) hypertension Vitamin D 25-OH Total 5 Months E55.9 - Vitamin D deficiency, unspecified, E78.5 - Hyperlipidemia, unspecified, I10 - Essential (primary) hypertension Medications: Refilled atorvastatin 40 mg PO DAILY 90 tabs 3RF donepezil 5 mg PO DAILY 90 tabs 3RF metoprolol succinate ER 50 mg PO DAILY 90 tabs 3RF triamterene-hydrochlorothiazid 37.5-25 mg 1 tab PO DAILY 90 tabs 3RF amlodipine 5 mg PO DAILY 90 tabs 3RF
== END 2024-06-19 13:04 | disposition home or self-care (01) ==
PROVIDERS: PCP Internal Medicine; Visit Provider Internal Medicine
DX: I10 Essential (primary) hypertension (principal); E78.5 Hyperlipidemia, unspecified; E55.9 Vitamin D deficiency, unspecified

== ENCOUNTER 2024-10-17 13:17 | Outpatient (AMB) | payer OTHER, SELFPAY ==
[2024-10-17 13:26] VITALS: BP 128/74; PULSE 68; RESP 20; TEMP 36.7; O2SAT 97; BMI 29.7
--- NOTE | 2024-10-17 13:26 | A.OFFPC_ITS ---
Vital Signs 10/17/24 13:26 Height 5 ft 6 in Weight 184 lb BMI 29.7 BP 128/74 Blood Pressure Location Lt brachial Position Sitting Respiration 20 Pulse 68 Pulse Source Pulse Oximeter Temp 98.1 F Temp Source Oral Pulse Oximetry (%) 97 Oxygen Delivery Method Room Air Intake Visit Reasons: ED f/up Intake Note: Pt is here today for ER follow up visit. Allergies Penicillins Allergy (Intermediate, Verified 10/17/24 13:29) Hives Medication List - Last Reconciled 10/17/24 by Ilana Edouard MD atorvastatin 40 mg PO DAILY donepezil 5 mg PO DAILY ketoconazole 2% 1 appl topical DAILY methylcellulose (laxative) (Citrucel) 500 mg PO BID metoprolol succinate ER 50 mg PO DAILY sertraline 50 mg PO DAILY valsartan-hydrochlorothiazide 160-12.5 mg 1 tab PO DAILY Tobacco use date assessed: 10/17/24 Fall risk assessment: No Falls in past year Last assessed Fall Risk: 10/17/24 Dental Screening Dental Screen Date: 10/17/24 Did you have a dental visit in the last 12 months?: Yes Did you have a dental problem in the last 6 months where you did not have access to dental care?: No Was dental information given to patient?: Patient has dentist HPI ED f/up HPI Details Pt presents for f/u. Patient was seen in the ER in [place] last month with the episode of left side abdominal pain diagnosed with acute diverticulitis and treated with antibiotics. Patient is feeling better still reports intermittent discomfort and loose bowel movements but denies fever chills nausea vomiting hematochezia melena. Hypertension and hyperlipidemia controlled on current medications. Patient complains of chronic lower extremities swelling was diagnosed with venous insufficiency and has been wearing compression knee- highs. [facility] Medical History Submandibular gland infection Annual physical exam Hyperglycemia Asthma Cough Bronchitis Hematuria Enlarged thyroid gland Family history- stomach cancer Liver hemangioma History of mammogram Chronic edema Hyperlipidemia HTN (hypertension) Sciatica Surgical History H/O colonoscopy H/O shoulder surgery Family History Father No problems noted. Mother No problems noted. Sister No problems noted. Social History Housing: House Are you a primary rn transitional care to a significant other at home: No Do you presently have visiting nurse or other home services: No Alcohol intake: never Patient Tobacco Use Status: Never used Tobacco e-Cigarette/Vaping Use: Never Used service: No Current occupational status: retired Cognitive needs: No Hearing needs: No Vision needs: Yes Questionnaire PHQ-9 Over the last 2 weeks, how often have you been bothered by any of the following problems? 1. Little interest or pleasure in doing things: not at all 2. Feeling down, depressed, or hopeless: several days 3. Trouble falling or staying asleep, or sleeping too much: not at all 4. Feeling tired or having little energy: not at all 5. Poor appetite or overeating: not at all 6. Feeling bad about yourself - or that you are a failure or have let yourself or your family down: not at all 7. Trouble concentrating on things, such as reading the newspaper or watching television: not at all 8. Moving or speaking so slowly that other people could have noticed. Or the opposite - being so fidgety or restless that you have been moving around a lot more than usual: not at all 9. Thoughts that you would be better off or of hurting yourself in some way: not at all Total score: 1 Depression Screening Interpretation: Negative Depression Screening Done: Yes 30816 - PHQ-9 Billing: Yes Source: Developed by Drs. Jacoby Bernal, Lawanda Lu, Carlos Manuel Bills and colleagues, with an educational joel from [employer]. Thrive Questionnaire Date Thrive assessed: 10/17/24 I am a: Patient What is your living situation today?: I have a steady place to live Within the past 12 months, did the food you bought not last and you didn't have the money to get more?: Never true Within the past 12 months, did you worry whether your food would run out before you got money to buy more?: Never true Do you have trouble paying for medicines?: No Do you have trouble getting transportation to medical appointments?: No Do you have trouble paying your heating and electricity bill?: No Do you have trouble taking care of your child, family member or friend?: No Do you have trouble with day-to-day activities such as bathing, preparing meals, shopping, managing finances, etc.?: No Are you currently unemployed and looking for a job?: No Are you interested in more education?: No Please select the resources that you would like help with: None THRIVE Score: 0 AUDIT C Alcohol Use Questionnaire (AUDIT-C) 1. How often do you have a drink containing alcohol?: Never 3. How often do you have six or more drinks on one occasion?: Never Total Score: 0 IRWIN-7 AMB Questionnaire IRWIN-7 Date IRWIN - 7 assessed: 10/17/24 Feeling nervous, anxious, or on edge: 0 = Not at all Not being able to stop or control worryin = Not at all Worrying too much about different things: 0 = Not at all Trouble relaxin = Not at all Being so restless that it is hard to sit still: 0 = Not at all Becoming easily annoyed or irritable: 0 = Not at all Feeling afraid as if something awful might happen: 0 = Not at all Total IRWIN-7 score (0-4 normal; 5-9 mild; 10-14 moderate; 15-21 severe): 0 Source: Developed by Drs. Jacoby Bernal, Lawanda Lu, Carlos Manuel Bills and colleagues, with an educational joel from [employer]. IRWIN-7 Assessment Billing IRWIN-7 Assessment Tool: IRWIN-7 Assessment 67794 Review of Systems Const All systems reviewed & are unremarkable except as noted in HPI and below ENT Reports no additional complaints Card Reports no additional complaints Resp Reports no additional complaints GI Reports no additional complaints Reports no additional complaints Physical exam (Primary Care) Vital Signs: Last Vital Signs Temp 98.1 F 10/17/24 13:26 Pulse 68 10/17/24 13:26 Resp 20 10/17/24 13:26 BP 128/74 10/17/24 13:26 Pulse Ox 97 10/17/24 13:26 Oxygen Delivery Method Room Air 10/17/24 13:26 BMI result Body Mass Index 29.7 Tobacco/Smoking Status: Tobacco use Status Tobacco use date assessed 10/17/24 10/17/24 14:00 Patient Tobacco Use Status Never used Tobacco 10/17/24 14:00 e-Cigarette/Vaping Use Never Used 10/17/24 13:27 PHQ-9: PHQ-9 Score PHQ-9: Total score 1 10/17/24 14:15 Depression Screening Interpretation: Negative Thrive Assessment: Date of Thrive Assessment Date Thrive assessed 10/17/24 10/17/24 14:00 Const General: no acute distress HENMT Head: Yes normal to inspection Mouth: Normal oral and palatal mucosa present Resp Effort & Inspection: normal respiratory effort Auscultation: clear to auscultation bilaterally Cardio Rhythm: regular rhythm Heart sounds: S1 normal heart sound present and S2 normal heart sound present GI Inspection: Yes normal to inspection Palpation (GI): Soft to palpation Percussion: Yes normal to percussion Auscultation: normal bowel sounds Immunizations pneumoc 20-heriberto conj-dip cr(PF) 0.5 mL IM syringe Performing Provider: Ilana Edouard MD Performing Location: [facility] Administered by: JOSÉ MANUEL Morales on 10/17/24 14:39 Dose Route Admin Location Dispensed Lot Number Expiration Date NDC Roll Tender 0.5 mL IM Left Deltoid 0.5 mL [id number] 10/17/24 0087-2249-60 WYETH/PFIZER VIS Given Date VIS Provided VIS Publication Date 10/17/24 Single Vaccine 21 Eligibility Eligibility Date Funding Source Not [facility] Eligible 10/17/24 Private Coding Level of Care Code Est Pt Level 4 (00382) Complex EM visit Add On G2211 Diagnoses HTN (hypertension) I10 Bilateral knee pain M25.561; M25.562 Hyperlipidemia E78.5 Venous insufficiency of both lower extremities I87.2 Additional Codes IRWIN-7 Assessment Billing - IRWIN-7 Assessment Tool: IRWIN-7 Assessment 54635 ([id number]) PHQ-9 - 79058 - PHQ-9 Billing: Yes ([id number]) Assessment & Plan Assessment & Plan (1) HTN (hypertension): Code(s): I10 - Essential (primary) hypertension Category: Medical Plan: Continue current medications (2) Bilateral knee pain: Comment: XR MILD OSTEOARTHRITIS bilaterally 2020 Code(s): M25.561 - Pain in right knee; M25.562 - Pain in left knee Category: Medical Plan: Patient will be referred to physical therapy for chronic bilateral knee pain (3) Hyperlipidemia: Code(s): E78.5 - Hyperlipidemia, unspecified Category: Medical Plan: Continue statin return for fasting blood work (4) Venous insufficiency of both lower extremities: Code(s): I87.2 - Venous insufficiency (chronic) (peripheral) Category: Medical Plan: Continue compression knee-highs Orders: Orders Comprehensive Met. Panel Today I10 - Essential (primary) hypertension Complete Blood Count Auto Diff Today I10 - Essential (primary) hypertension PT Evaluation and Treatment Today M25.561 - Pain in right knee, M25.562 - Pain in left knee, R10.9 - Unspecified abdominal pain Pneumococcal 20 Immunization Today Z23 - Encounter for immunization Lipase Today R10.9 - Unspecified abdominal pain Medications: New valsartan-hydrochlorothiazide 160-12.5 mg 1 tab PO DAILY 90 tabs 3RF Changed From metoprolol succinate ER 1/2 tab daily 50 mg PO DAILY To metoprolol succinate ER 50 mg PO DAILY
== END 2024-10-17 15:20 | disposition home or self-care (01) ==
LOC: HO.HMCC 13:18
PROVIDERS: PCP Internal Medicine; Visit Provider Internal Medicine
DX: I10 Essential (primary) hypertension (principal); M25.561 Pain in right knee; M25.562 Pain in left knee; E78.5 Hyperlipidemia, unspecified; I87.2 Venous insufficiency (chronic) (peripheral); Z23 Encounter for immunization

== ENCOUNTER 2024-10-17 13:17 | Outpatient (REF) | payer MEDICARE, SELFPAY ==
[2024-10-17 16:09] LABS: MANUAL DIFF FLAG NO
[2024-10-17 16:17] LABS: Basophils Absolute Auto 0.1 X10*3/uL (0.0-0.2); Basophils Percent Auto 1.3 % (0-2); Eosinophils Absolute Auto 0.4 X10*3/uL (0.0-0.4); Hematocrit 40.5 % (37.0-47.0); Imm Gran Abs Auto 0.04 X10*3/uL (0.00-0.03); Imm Gran Pct Auto 0.4 % (0.0-0.4); Lymphocytes Absolute Auto 2.7 X10*3/uL (1.2-4.9); Lymphocytes Percent Auto 26.9 % (20-40); Mean Corpuscular HGB Conc 34.6 g/dl (31.0-35.0); Mean Corpuscular Hemoglobin 31.3 pg (27.0-33.0); Mean Corpuscular Volume 90.4 fL (80.0-98.0); Mean Platelet Volume 9.3 fL (9.4-12.3); Monocytes Absolute Auto 0.8 X10*3/uL (0.1-1.2); Monocytes Percent Auto 7.8 % (2-11); Neutrophils Percent Auto 59.6 % (45-73); Platelet Count 297 X10*3/uL (160-400); Red Blood Count 4.48 X10*6/uL (4.20-5.50); Red Cell Distribution Width 12.6 % (11.0-16.0); White Blood Count 10.1 X10*3/uL (4.8-10.8)
[2024-10-17 16:38] LABS: Alanine Aminotransferase 46 U/L (0-31); Albumin Level 4.1 g/dL (3.5-5.0); Alkaline Phosphatase 66 U/L (39-117); Anion Gap 11 (12-20); Aspartate Amino Transferase 34 U/L (5-31); Bilirubin Total 0.4 mg/dL (0.0-1.0); Blood Urea Nitrogen 16 mg/dL (9-16); Calcium 9.7 mg/dL (8.4-10.2); Carbon Dioxide 26 mmol/L (22-29); Chloride 107 mmol/L (96-108); Estimated Glomerular Filt Rate 57; Glucose Random 92 mg/dL (60-115); Lipase 44 U/L (8-78); Potassium 3.1 mmol/L (3.3-5.1); Sodium 141 mmol/L (135-145); Total Protein 7.1 g/dL (6.5-8.0)
--- OUTSIDE RECORDS SUMMARY | 2024-10-17 17:19 | XMS_ITS | Encounter Summary ---
Author Organization [facility] Address [address] [place] [address] Care Team Providers Care Pizza Driver Name Role Phone Ilana Edouard MD Primary Care Provider Unavaila ble Reason for Visit * Reason Onset Date Comments APPOINTMENT 07/30/2020 Encounter Details Date Type Department Care Team Description 07/30/2020 Telephone Gastroenterology - [place] [address] [facility] [address] [place] [address] Neva Santiago DScPAS APPOINTMENT Social History Tobacco Use Types Packs/Day Years Used Date Smoking Tobacco: Never Assessed Sex Assigned at Date Recorded Not on file documented as of this encounter Miscellaneous Notes * Telephone Encounter - Kallie Colvin - 07/30/2020 2:14 PM EST I called and left the patient a voicemail to book a consult for GERD with Jessica. If patient calls back please book with Jessica and let me know so I can give paperwork to the medical receptionist medical assistant. documented in this encounter Plan of Treatment Not on file documented as of this encounter Visit Diagnoses Not on filedocumented in this encounter Care Teams Pizza Driver Relationship Specialty Start Date End Date Ilana Edouard MD PCP - General Internal Medicine 07/30/20 documented as of this encounter
--- OUTSIDE RECORDS SUMMARY | 2024-10-17 17:19 | XMS_ITS | Encounter Summary ---
Author Organization [facility] Address [address] [place] [address] Care Team Providers Care Religious Healer Name Role Phone Rupert Pacheco MD Primary Care Provider UnavailIlana Valdez MD Primary Care Provider Delaney brandon Encounter Details Date Type Department Care Team Description 11/15/2016 Transfer Records Medical Records [address] [place] [id number] [place] [address] Social History Tobacco Use Types Packs/Day Years Used Date Smoking Tobacco: Never Assessed Sex Assigned at Date Recorded Not on file documented as of this encounter Plan of Treatment Not on file documented as of this encounter Visit Diagnoses Not on filedocumented in this encounter Care Teams Religious Healer Relationship Specialty Start Date End Date Rupert Pacheco MD PCP - General Internal Medicine 09/28/16 07/29/20 Ilana Edouard MD PCP - General Internal Medicine 07/30/20 documented as of this encounter
--- OUTSIDE RECORDS SUMMARY | 2024-10-17 17:19 | XMS_ITS | Encounter Summary ---
Author Organization [facility] Address [address] [place] [address] Care Team Providers Care Rigger Apprentice Name Role Phone Rupert Pacheco MD Primary Care Provider Unavaillibrado e Ilana Edouard MD Primary Care Provider Delaney brandon Encounter Details Date Type Department Care Team Description 05/23/2020 Senior Oracle Adf Developer Report Medical Records [address] [place] [id number] Ilana Edouard MD Social History Tobacco Use Types Packs/Day Years Used Date Smoking Tobacco: Never Assessed Sex Assigned at Date Recorded Not on file documented as of this encounter Plan of Treatment Not on file documented as of this encounter Visit Diagnoses Not on filedocumented in this encounter Care Teams Rigger Apprentice Relationship Specialty Start Date End Date Rupert Pacheco MD PCP - General Internal Medicine 09/28/16 07/29/20 Ilana Edouard MD PCP - General Internal Medicine 07/30/20 documented as of this encounter
--- OUTSIDE RECORDS SUMMARY | 2024-10-17 17:19 | XMS_ITS | Encounter Summary ---
Author Organization [facility] Address [address] [place] [address] Care Team Providers Care Data Center Operator Name Role Phone Willem Landers Primary Care Provider [phone] Rupert Pacheco MD Primary Care Provider UnavailIlana Valdez MD Primary Care Provider Delaney brandon Encounter Details Date Type Department Care Team Description 05/22/2012 District Manager In Training Report Medical Records [address] [place] [id number] Abstract, Provider Social History Tobacco Use Types Packs/Day Years Used Date Smoking Tobacco: Never Assessed Sex Assigned at Date Recorded Not on file documented as of this encounter Plan of Treatment Not on file documented as of this encounter Visit Diagnoses Not on filedocumented in this encounter Care Teams Data Center Operator Relationship Specialty Start Date End Date Willem Landers [address] [place] [address] PCP - General 03/04/1994 09/27/16 Rupert Pacheco MD [address] [place] [id number] PCP - General Internal Medicine 09/28/16 07/29/20 Ilana Edouard MD [address] [place] [id number] PCP - General Internal Medicine 07/30/20 documented as of this encounter
--- OUTSIDE RECORDS SUMMARY | 2024-10-17 17:19 | XMS_ITS | Encounter Summary ---
Author Organization [facility] Address [address] [place] [address] Care Team Providers Care Leaf Fat Scraper Name Role Phone Rupert Pacheco MD Primary Care Provider Ilana Shelton MD Primary Care Provider Delaney brandon Encounter Details Date Type Department Care Team Description 11/15/2016 Release of Information Medical Records [address] [place] [id number] Abstract, Provider Social History Tobacco Use Types Packs/Day Years Used Date Smoking Tobacco: Never Assessed Sex Assigned at Date Recorded Not on file documented as of this encounter Plan of Treatment Not on file documented as of this encounter Visit Diagnoses Not on filedocumented in this encounter Care Teams Leaf Fat Scraper Relationship Specialty Start Date End Date Rupert Pacheco MD PCP - General Internal Medicine 09/28/16 07/29/20 Ilana Edouard MD PCP - General Internal Medicine 07/30/20 documented as of this encounter
== END 2024-10-17 13:18 | disposition home or self-care (01) ==
LOC: HO.HMGCLDS 13:17
PROVIDERS: PCP Internal Medicine; Visit Provider Internal Medicine
DX: I10 Essential (primary) hypertension (principal); Z23 Encounter for immunization; M25.561 Pain in right knee; M25.562 Pain in left knee; E78.5 Hyperlipidemia, unspecified; I87.2 Venous insufficiency (chronic) (peripheral); R10.9 Unspecified abdominal pain
CPT/HCPCS: 36415; 80053; 83690; 85025; 90471; 90677; 96127

== ENCOUNTER 2024-11-02 09:41 | Outpatient (REF) | payer MEDICARE, SELFPAY ==
[2024-11-02 13:14] LABS: MANUAL DIFF FLAG NO
[2024-11-02 13:42] LABS: Basophils Absolute Auto 0.1 X10*3/uL (0.0-0.2); Basophils Percent Auto 0.9 % (0-2); Eosinophils Absolute Auto 0.4 X10*3/uL (0.0-0.4); Eosinophils Percent Auto 6.1 % (0-4); Hematocrit 39.7 % (37.0-47.0); Hemoglobin 13.6 g/dl (12.0-16.0); Imm Gran Abs Auto 0.02 X10*3/uL (0.00-0.03); Imm Gran Pct Auto 0.3 % (0.0-0.4); Lymphocytes Absolute Auto 1.8 X10*3/uL (1.2-4.9); Lymphocytes Percent Auto 27.2 % (20-40); Mean Corpuscular HGB Conc 34.3 g/dl (31.0-35.0); Mean Corpuscular Hemoglobin 31.7 pg (27.0-33.0); Mean Corpuscular Volume 92.5 fL (80.0-98.0); Mean Platelet Volume 9.3 fL (9.4-12.3); Monocytes Absolute Auto 0.6 X10*3/uL (0.1-1.2); Monocytes Percent Auto 9.3 % (2-11); Neutrophils Absolute Auto 3.6 x10*3/uL (2.0-8.3); Neutrophils Percent Auto 56.2 % (45-73); Platelet Count 233 X10*3/uL (160-400); Red Blood Count 4.29 X10*6/uL (4.20-5.50); Red Cell Distribution Width 13.3 % (11.0-16.0); White Blood Count 6.4 X10*3/uL (4.8-10.8)
[2024-11-02 13:57] LABS: Alanine Aminotransferase 30 U/L (0-31); Alkaline Phosphatase 62 U/L (39-117); Anion Gap 10 (12-20); Aspartate Amino Transferase 34 U/L (5-31); Blood Urea Nitrogen 14 mg/dL (9-16); Calcium 9.8 mg/dL (8.4-10.2); Carbon Dioxide 28 mmol/L (22-29); Chloride 108 mmol/L (96-108); Cholesterol 184 mg/dL (<200); Estimated Glomerular Filt Rate > 60; Glucose Fasting 100 mg/dL (60-99); HDL Cholesterol 50 mg/dL (>40); LDL Cholesterol Calculated 106 mg/dL (<100); Potassium 3.9 mmol/L (3.3-5.1); Sodium 142 mmol/L (135-145); Total Protein 6.7 g/dL (6.5-8.0); Triglycerides 144 mg/dL (<150)
[2024-11-02 14:14] LABS: TSH reflex Free T4 1.33 uIU/mL (0.32-4.0); Vitamin D 25-OH Total 68.5 ng/mL (>30)
== END 2024-11-02 09:42 | disposition home or self-care (01) ==
LOC: HO.HMGCLDS 09:41
PROVIDERS: PCP Internal Medicine; Visit Provider Internal Medicine
DX: I10 Essential (primary) hypertension (principal); E78.5 Hyperlipidemia, unspecified; E55.9 Vitamin D deficiency, unspecified
CPT/HCPCS: 36415; 80053; 80061; 82306; 84443; 85025

== ENCOUNTER 2025-01-23 10:53 | Outpatient (REF) | payer MEDICARE, SELFPAY ==
--- NOTE | ~2025-01-23 | XR_ITS ---
EXAMINATION: XR SINUSES CLINICAL INFORMATION: R51.9 - Headache, unspecified COMPARISON: None available. TECHNIQUE: 3 views of the sinuses were obtained. FINDINGS: Paranasal sinuses appear clear without air-fluid levels. No fractures are identified. Dental hardware is visible in the mandible. XR/XR sinus min 3V IMPRESSION: Unremarkable examination. Electronically signed by: Lazarus Lopez MD 01/23/2025 12:16 PM EDT
== END 2025-01-23 10:54 | disposition home or self-care (01) ==
LOC: HO.HMGCX 10:53
PROVIDERS: PCP Internal Medicine; Visit Provider Internal Medicine
DX: R51.9 Headache, unspecified (principal); F41.9 Anxiety disorder, unspecified; I10 Essential (primary) hypertension
CPT/HCPCS: 36415; 70220; 86140; 99212

== ENCOUNTER 2025-01-23 10:53 | Outpatient (AMB) | payer MEDICARE, SELFPAY ==
--- NOTE | 2025-01-23 10:59 | MHC.PC.OV ---
Vital Signs 01/23/25 11:00 Height 5 ft 6 in Weight 192 lb BMI 31.0 BP 118/62 Blood Pressure Location Lt brachial Position Sitting Respiration 18 Pulse 64 Pulse Source Pulse Oximeter Temp 98.3 F Temp Source Oral Pulse Oximetry (%) 97 Oxygen Delivery Method Room Air Intake Visit Reasons: stomach issues & headaches Intake Note: Pt is here today for a sikc visit. Pt c/o headaches for a while now. Allergies Penicillins Allergy (Intermediate, Verified 01/23/25 11:11) Hives Medication List - Last Reconciled 01/23/25 by Ilana Edouard MD atorvastatin 40 mg PO DAILY donepezil 5 mg PO DAILY ketoconazole 2% 1 appl topical DAILY methylcellulose (laxative) (Citrucel) 500 mg PO BID metoprolol succinate ER 50 mg PO DAILY sertraline 50 mg PO DAILY valsartan-hydrochlorothiazide 160-12.5 mg 1 tab PO DAILY Tobacco use date assessed: 01/23/25 Fall risk assessment: No Falls in past year Last assessed Fall Risk: 01/23/25 Dental Screening Dental Screen Date: 10/17/24 HPI stomach issues & headaches HPI Details Patient presents complaining of frequent headaches for the last 2 months. The headaches feel like pressure in both temporal and frontal areas, behind eyes. She denies nasal discharge sinus congestion fever chills nausea vomiting weakness or numbness in extremities change in balance. She reports decreased vision and has an appointment with assistant speech language pathologist in 1 week. Patient reports more stress lately relating to her difficult . She complains of insomnia. She stopped taking sertraline 2 months ago. Patient denies depression. hypertension has been controlled on current medications. [facility] Medical History Submandibular gland infection Annual physical exam Hyperglycemia Asthma Cough Bronchitis Hematuria Enlarged thyroid gland Family history- stomach cancer Liver hemangioma History of mammogram Chronic edema Hyperlipidemia HTN (hypertension) Sciatica Surgical History H/O colonoscopy H/O shoulder surgery Family History Father No problems noted. Mother No problems noted. Sister No problems noted. Social History (Reviewed 01/23/25 @ 11:11 by TRACY Morales Housing: House Are you a primary pediatric critical care nurse to a significant other at home: No Do you presently have visiting nurse or other home services: No Alcohol intake: never Patient Tobacco Use Status: Never used Tobacco e-Cigarette/Vaping Use: Never Used service: No Current occupational status: retired Cognitive needs: No Hearing needs: No Vision needs: Yes Questionnaire Thrive Questionnaire Date Thrive assessed: 10/17/24 IRWIN-7 AMB Questionnaire IRWIN-7 Date IRWIN - 7 assessed: 10/17/24 Source: Developed by Drs. Jacoby Bernal, Lawanda Lu, Carlos Manuel Bills and colleagues, with an educational joel from [employer]. Review of Systems Const All systems reviewed & are unremarkable except as noted in HPI and below Eyes Reports no additional complaints ENT Reports no additional complaints Card Reports no additional complaints Resp Reports no additional complaints GI Reports no additional complaints Reports no additional complaints Physical exam (Primary Care) Vital Signs: Last Vital Signs Temp 98.3 F 01/23/25 11:00 Pulse 64 01/23/25 11:00 Resp 18 01/23/25 11:00 BP 118/62 01/23/25 11:00 Pulse Ox 97 01/23/25 11:00 Oxygen Delivery Method Room Air 01/23/25 11:00 BMI result Body Mass Index 31.0 Tobacco/Smoking Status: Tobacco use Status Tobacco use date assessed 01/23/25 01/23/25 11:13 Patient Tobacco Use Status Never used Tobacco 01/23/25 11:00 e-Cigarette/Vaping Use Never Used 01/23/25 11:00 Thrive Assessment: Date of Thrive Assessment Date Thrive assessed 10/17/24 01/23/25 11:00 Const General: no acute distress HENMT Head: Yes normal to inspection, Yes normocephalic, No scalp tenderness and No Temporal artery tenderness present Ears: TM's normal bilaterally General nose exam: Normal nasal mucous membranes and turbinates present and No nasal discharge present Face and sinus: Yes normal facial exam and No sinus tenderness Mouth: oropharynx normal Throat: Yes posterior oropharynx normal Eyes General: appearance normal, both eyes and all related structures Visual Kuo: normal visual kuo by confrontation Pupils: Equal, round and reactive pupils present Neck Neck: Yes no lymphadenopathy and Yes supple Resp Effort & Inspection: normal respiratory effort Auscultation: clear to auscultation bilaterally Cardio Rhythm: regular rhythm Heart sounds: S1 normal heart sound present and S2 normal heart sound present Neuro Cranial nerves: Yes CN's II-XII intact bilaterally and Yes Equal, round and reactive pupils present Motor exam (neuro): 5/5 motor strength present throughout Romberg Test: Negative Coding Level of Care Code Est Pt Level 4 (74079) Diagnoses Anxiety F41.9 Headache R51.9 HTN (hypertension) I10 Assessment & Plan Assessment & Plan (1) Anxiety: Code(s): F41.9 - Anxiety disorder, unspecified Category: Medical Plan: Patient was advised to restart Zoloft. Stress management discussed with the patient increasing physical activity and mindfulness (2) Headache: Code(s): R51.9 - Headache, unspecified Category: Medical Plan: Check CRP and sinus x-rays. Patient will have ophthalmological exam. If the headache persists CT of the brain will be obtained (3) HTN (hypertension): Code(s): I10 - Essential (primary) hypertension Category: Medical Plan: Continue current medications Orders: Orders C Reactive Protein Today R51.9 - Headache, unspecified XR sinus min 3V Today R51.9 - Headache, unspecified Medications: Refilled sertraline 50 mg PO DAILY 90 tabs 3RF
[2025-01-23 11:00] VITALS: BP 118/62; PULSE 64; RESP 18; TEMP 36.8; O2SAT 97; BMI 31.0
== END 2025-01-23 12:43 | disposition home or self-care (01) ==
LOC: HO.HMCC 10:54
PROVIDERS: PCP Internal Medicine; Visit Provider Internal Medicine
DX: F41.9 Anxiety disorder, unspecified (principal); R51.9 Headache, unspecified; I10 Essential (primary) hypertension

== ENCOUNTER → 2025-01-23 12:00 | Outpatient (BNV) | payer MEDICARE, SELFPAY | PROVIDERS: PCP Internal Medicine; Visit Provider Radiology Diagnostic Radiology | DX: R51.9 Headache, unspecified (principal) | CPT/HCPCS: 70220 ==

== ENCOUNTER 2025-02-19 11:26 | Outpatient (REF) | payer MEDICARE, SELFPAY ==
--- OUTSIDE RECORDS SUMMARY | 2025-02-19 13:24 | XMS_ITS | Encounter Summary ---
Author Organization [facility] Address [address] [place] [address] Care Team Providers Care Pipe [address] Service Name Role Phone Rupert Pacheco MD Primary Care Provider Ilana Shelton MD Primary Care Provider Delaney brandon Encounter Details Date Type Department Care Team Description 11/15/2016 Release of Information Medical Records [address] [place] [id number] Abstract, Provider Social History Tobacco Use Types Packs/Day Years Used Date Smoking Tobacco: Never Assessed Sex Assigned at Date Recorded Not on file documented as of this encounter Plan of Treatment Not on file documented as of this encounter Visit Diagnoses Not on filedocumented in this encounter Care Teams P[address] Service Relationship Specialty Start Date End Date Rupert Pacheco MD PCP - General Internal Medicine 09/28/16 07/29/20 Ilana Edouard MD PCP - General Internal Medicine 07/30/20 documented as of this encounter
[2025-02-19 14:50] LABS: Chlamydia pneumoniae PCR Not Detected (Not Detect.); Coronavirus 229E PCR Not Detected (Not Detect.); Coronavirus HKU1 PCR Not Detected (Not Detect.); Coronavirus NL63 PCR Not Detected (Not Detect.); Coronavirus OC43 PCR Not Detected (Not Detect.); RSV PCR Not Detected (Not Detect.); Rhino/Enterovirus PCR Not Detected (Not Detect.)
[2025-02-19 15:20] LABS: Influenza A H1 PCR Not Detected (Not Detect.); Influenza A H1-2009 PCR Not Detected (Not Detect.); Influenza A H3 PCR Not Detected (Not Detect.); SARS-CoV-2 PCR Not Detected (Not Detect.)
== END 2025-02-19 11:27 | disposition home or self-care (01) ==
LOC: HO.LAB 11:26
PROVIDERS: Physician Assistant; PCP Internal Medicine
DX: J01.21 Acute recurrent ethmoidal sinusitis (principal); J06.9 Acute upper respiratory infection, unspecified; R51.9 Headache, unspecified; R09.89 Other specified symptoms and signs involving the circulatory and respiratory systems; R09.82 Postnasal drip; R06.02 Shortness of breath
CPT/HCPCS: 87633; 99212

== ENCOUNTER 2025-02-19 11:26 | Outpatient (AMB) | payer MEDICARE, SELFPAY ==
[2025-02-19 11:29] VITALS: BP 134/72; PULSE 55; TEMP 36.9; O2SAT 97; BMI 31.0
--- NOTE | 2025-02-19 11:29 | AM.OFFWIN_ITS ---
Intake Vital Signs 02/19/25 11:29 Height 5 ft 6 in Weight 192 lb 6 oz BMI 31.0 BP 134/72 Blood Pressure Location Lt brachial Position Sitting Pulse 55 Pulse Source Pulse Oximeter Temp 98.5 F Temp Source Oral Pulse Oximetry (%) 97 Oxygen Delivery Method Room Air Intake Visit Reasons: EP-headaches Patient Tobacco Use Status: Never used Tobacco Associate Professor Of English Required: No Is last menstrual period known: No Post menopausal: Yes Patient : No Allergies Penicillins Allergy (Intermediate, Verified 02/19/25 11:33) Hives HPI HPI Comments History of Present Illness Details History of Present Illness - The patient is a 75-year-old female pr esenting with sinus pain, headache, and upper respiratory symptoms. - Symptoms have persisted for over a tue, including sinus pain, headache, runny nose, and postnasal drip. - The patient has not used [id number] ter medications due to hypertension concerns and reports mild shortness of breath when supine. - An eye doctor ruled out ocular causes, and sinusitis was suggested due to location of pain. - No wheezing, ear pain or fevers. Physical Exam General: Cooperative, healthy appearing, comfortable, no acute distress and well developed Orientation: Patient oriented x3 Limitations: No limitations Head: Normal to inspection Ears: Hearing grossly normal bilaterally, TM's normal bilaterally Nose: Runny nose, normal external nose present Face and sinus: normal appearing, TTP ethmoid sinuses bilaterally Mouth: moist oral mucosa, posterior oropharynx erythema Eyes: Appearance normal, both eyes and all related structures Neck: Normal visual inspection and Yes full ROM Respiratory: Normal respiratory effort, able to speak in complete sentences Skin: No rashes or lesions noted Neuro: Patient oriented x3 Extremities: Normal to inspection [facility], [facility] Medical History Submandibular gland infection Annual physical exam Hyperglycemia Asthma Cough Bronchitis Hematuria Enlarged thyroid gland Family history- stomach cancer Liver hemangioma History of mammogram Chronic edema Hyperlipidemia HTN (hypertension) Sciatica Surgical History H/O colonoscopy H/O shoulder surgery Family History Father No problems noted. Mother No problems noted. Sister No problems noted. Social History Housing: House Are you a primary health care specialist to a significant other at home: No Do you presently have visiting nurse or other home services: No Alcohol intake: never Patient Tobacco Use Status: Never used Tobacco e-Cigarette/Vaping Use: Never Used service: No Current occupational status: retired Cognitive needs: No Hearing needs: No Vision needs: Yes Review of Systems Const All systems reviewed & are unremarkable except as noted in HPI and below Physical Exam Vital Signs: Last Vital Signs Temp 98.5 F 02/19/25 11:29 Pulse 55 02/19/25 11:29 BP 134/72 02/19/25 11:29 Pulse Ox 97 02/19/25 11:29 Oxygen Delivery Method Room Air 02/19/25 11:29 BMI result Body Mass Index 31.0 Assessment & Plan Assessment & Plan (1) Acute ethmoidal sinusitis: Code(s): J01.20 - Acute ethmoidal sinusitis, unspecified Qualifiers: Recurrence: recurrent Qualified Code(s): J01.21 - Acute recurrent ethmoidal sinusitis Plan: Plan - Use neti pot with distilled water followed by Flonase every 12 hours for sinus management. - Explained how to properly use Flonase. - Prescribed oral prednisone 20 mg daily for 5 days to alleviate symptoms. - Performed a viral panel; if negative and symptoms persist, initiate Augmentin therapy which has been sent to pharmacy. Patient was informed and verbally consented to the use of an ambient scribe for clinic note documentation during this visit. Orders: Orders Resp Pathogen [place] [facility] [place] J06.9 - Acute upper respiratory infection, unspecified Medications: New amoxicillin-pot clavulanate 875-125 mg 1 tab PO Q12H 14 tabs 0RF prednisone 20 mg PO DAILY 5 tabs 0RF Coding Level of Care Code Est Pt Level 3 (37203) Diagnoses Acute recurrent ethmoidal sinusitis J01.21 Recurrence: recurrent
== END 2025-02-19 12:43 | disposition home or self-care (01) ==
PROVIDERS: PCP Internal Medicine; Visit Provider Physician Assistant
DX: J01.21 Acute recurrent ethmoidal sinusitis (principal)

== ENCOUNTER 2025-03-29 11:10 | Outpatient (REF) | payer MEDICARE, SELFPAY ==
--- NOTE | ~2025-03-29 | XR_ITS ---
EXAMINATION: XR CHEST CLINICAL INFORMATION: J45.909 - Unspecified asthma, uncomplicated COMPARISON: November 21, 2023 TECHNIQUE: 2 views of the chest were obtained. FINDINGS: No significant abnormality is noted involving the heart, lungs, mediastinum, bony thorax or soft tissues. XR/XR chest 2V IMPRESSION: Unremarkable examination. Electronically signed by: Lazarus Lopez MD 03/29/2025 12:25 PM EDT
== END 2025-03-29 11:11 | disposition home or self-care (01) ==
LOC: HO.HMGCX 11:10
PROVIDERS: PCP Internal Medicine; Visit Provider Internal Medicine
DX: J45.909 Unspecified asthma, uncomplicated (principal); Z79.899 Other long term (current) drug therapy; R42 Dizziness and giddiness; I10 Essential (primary) hypertension
CPT/HCPCS: 71046; 99212

== ENCOUNTER 2025-03-29 11:10 | Outpatient (AMB) | payer MEDICARE, SELFPAY ==
--- NOTE | 2025-03-29 11:23 | A.OFFPC_ITS ---
Vital Signs 03/29/25 11:29 Height 5 ft 6 in Weight 192 lb BMI 31.0 BP 130/72 Blood Pressure Location Rt brachial Position Sitting Respiration 20 Pulse 92 Pulse Source Pulse Oximeter Temp 98.3 F Temp Source Oral Pulse Oximetry (%) 98 Oxygen Delivery Method Room Air Intake Visit Reasons: headaches Intake Note: Pt is here today for a sick visit. Pt c/o headaches and feeling out of balance. Pt states that she fell 3 weeks ago due to the dizziness. Allergies Penicillins Allergy (Intermediate, Verified 03/29/25 11:48) Hives Medication List - Last Reconciled 03/29/25 by Ilana Edouard MD atorvastatin 40 mg PO DAILY donepezil 5 mg PO DAILY ketoconazole 2% 1 appl topical DAILY methylcellulose (laxative) (Citrucel) 500 mg PO BID metoprolol succinate ER 50 mg PO DAILY sertraline 50 mg PO DAILY valsartan-hydrochlorothiazide 160-12.5 mg 1 tab PO DAILY Tobacco use date assessed: 03/29/25 Fall risk assessment: 1 Fall in past year Last assessed Fall Risk: 03/29/25 Dental Screening Dental Screen Date: 10/17/24 HPI headaches HPI Details Pt complains of recurrent episodes of positional vertigo for the last few months. She denies any difficulty with the balance, weakness or numbness in extremities, diplopia nausea vomiting nasal congestion. She complains of the episode of wheezing and chest congestion after laying down in bed for the last 2 weeks. She denies fever chills cough sputum production pleurisy PND orthopnea. Hypertension is controlled on current medications [facility] Medical History Submandibular gland infection Annual physical exam Hyperglycemia Asthma Cough Bronchitis Hematuria Enlarged thyroid gland Family history- stomach cancer Liver hemangioma History of mammogram Chronic edema Hyperlipidemia HTN (hypertension) Sciatica Surgical History H/O colonoscopy H/O shoulder surgery Family History Father No problems noted. Mother No problems noted. Sister No problems noted. Social History Housing: House Are you a primary career coach to a significant other at home: No Do you presently have visiting nurse or other home services: No Alcohol intake: never Patient Tobacco Use Status: Never used Tobacco e-Cigarette/Vaping Use: Never Used service: No Current occupational status: retired Cognitive needs: No Hearing needs: No Vision needs: Yes Questionnaire PHQ-9 Over the last 2 weeks, how often have you been bothered by any of the following problems? 1. Little interest or pleasure in doing things: not at all 2. Feeling down, depressed, or hopeless: several days 3. Trouble falling or staying asleep, or sleeping too much: not at all 4. Feeling tired or having little energy: not at all 5. Poor appetite or overeating: not at all 6. Feeling bad about yourself - or that you are a failure or have let yourself or your family down: not at all 7. Trouble concentrating on things, such as reading the newspaper or watching television: not at all 8. Moving or speaking so slowly that other people could have noticed. Or the opposite - being so fidgety or restless that you have been moving around a lot more than usual: not at all 9. Thoughts that you would be better off or of hurting yourself in some way: not at all Total score: 1 Depression Screening Interpretation: Negative Depression Screening Done: Yes Source: Developed by Drs. Jacoby Bernal, Lawanda Lu, Carlos Manuel Bills and colleagues, with an educational joel from [employer]. Thrive Questionnaire Date Thrive assessed: 10/17/24 RIWIN-7 AMB Questionnaire IRWIN-7 Date IRWIN - 7 assessed: 10/17/24 Feeling nervous, anxious, or on edge: 0 = Not at all Not being able to stop or control worryin = Not at all Worrying too much about different things: 0 = Not at all Trouble relaxin = Not at all Being so restless that it is hard to sit still: 0 = Not at all Becoming easily annoyed or irritable: 0 = Not at all Feeling afraid as if something awful might happen: 0 = Not at all Total IRWIN-7 score (0-4 normal; 5-9 mild; 10-14 moderate; 15-21 severe): 0 Source: Developed by Drs. Jacoby Bernal, Lawanda Lu, Carlos Manuel Bills and colleagues, with an educational joel from [employer]. Review of Systems Const All systems reviewed & are unremarkable except as noted in HPI and below ENT Reports no additional complaints Card Reports no additional complaints Resp Reports no additional complaints GI Reports no additional complaints Reports no additional complaints Physical exam (Primary Care) Vital Signs: Last Vital Signs Temp 98.3 F 03/29/25 11:29 Pulse 92 03/29/25 11:29 Resp 20 03/29/25 11:29 BP 130/72 03/29/25 11:29 Pulse Ox 98 03/29/25 11:29 Oxygen Delivery Method Room Air 03/29/25 11:29 BMI result Body Mass Index 31.0 Tobacco/Smoking Status: Tobacco use Status Tobacco use date assessed 03/29/25 03/29/25 11:29 Patient Tobacco Use Status Never used Tobacco 03/29/25 11:23 e-Cigarette/Vaping Use Never Used 03/29/25 11:23 PHQ-9: PHQ-9 Score PHQ-9: Total score 1 03/29/25 11:29 Depression Screening Interpretation: Negative Thrive Assessment: Date of Thrive Assessment Date Thrive assessed 10/17/24 03/29/25 11:23 Const General: no acute distress HENMT Head: Yes normal to inspection Ears: hearing grossly normal bilaterally Face and sinus: Yes normal facial exam Eyes General: appearance normal, both eyes and all related structures Neck Neck: Yes supple Resp Effort & Inspection: normal respiratory effort Auscultation: clear to auscultation bilaterally Cardio Rhythm: regular rhythm Heart sounds: S1 normal heart sound present and S2 normal heart sound present GI Inspection: Yes normal to inspection Palpation (GI): Soft to palpation Neuro Cranial nerves: Yes CN's II-XII intact bilaterally Gait exam (Neuro): Normal gait present Motor exam (neuro): 5/5 motor strength present throughout Romberg Test: Negative Coding Level of Care Code Est Pt Level 4 (43831) Diagnoses Vertigo R42 Asthma J45.909 HTN (hypertension) I10 Assessment & Plan Assessment & Plan (1) Vertigo: Code(s): R42 - Dizziness and giddiness Category: Medical Plan: For persistent benign positional vertigo patient will be referred to physical therapy. She is going to [place] next month and will schedule an appointment after her trip in May (2) Asthma: Code(s): J45.909 - Unspecified asthma, uncomplicated Category: Medical Plan: For intermittent wheezing try albuterol inhaler check chest x-ray and PFTs will be scheduled after patient trip to [place] to evaluate for COPD/asthma (3) HTN (hypertension): Code(s): I10 - Essential (primary) hypertension Category: Medical Plan: Continue current medications Orders: Orders PT Evaluation and Treatment Today R42 - Dizziness and giddiness Medications: New albuterol sulfate 90 mcg/actuation (Ventolin HFA) 2 puffs inhalation Q6H PRN 6.7 grams 1RF shortness of breath or wheezing
[2025-03-29 11:29] VITALS: BP 130/72; PULSE 92; RESP 20; TEMP 36.8; O2SAT 98; BMI 31.0
--- OUTSIDE RECORDS SUMMARY | 2025-03-29 12:56 | XMS_ITS | Encounter Summary ---
Author Organization [facility] Address [address] [place] [address] Care Team Providers Care Freight Rate Specialist Name Role Phone Rupert Pacheco MD Primary Care Provider Ilana Shelton MD Primary Care Provider Delaney brandon Encounter Details Date Type Department Care Team Description 11/15/2016 Release of Information Medical Records [address] [place] [id number] Abstract, Provider Social History Tobacco Use Types Packs/Day Years Used Date Smoking Tobacco: Never Assessed Sex Assigned at Date Recorded Not on file documented as of this encounter Plan of Treatment Not on file documented as of this encounter Visit Diagnoses Not on filedocumented in this encounter Care Teams Freight Rate Specialist Relationship Specialty Start Date End Date Rupert Pacheco MD PCP - General Internal Medicine 09/28/16 07/29/20 Ilana Edouard MD PCP - General Internal Medicine 07/30/20 documented as of this encounter
--- OUTSIDE RECORDS SUMMARY | 2025-03-29 12:56 | XMS_ITS | Encounter Summary ---
Author Organization [facility] Address [address] [place] [address] Care Team Providers Care Heel Breaster Name Role Phone Ilana Edouard MD Primary Care Provider Unavaila ble Reason for Visit * Reason Onset Date Comments APPOINTMENT 07/30/2020 Encounter Details Date Type Department Care Team Description 07/30/2020 Telephone Gastroenterology - [place] [address] [facility] [address] [place] [address] Neva Santiago DScPAS APPOINTMENT Social [...] I can give paperwork to the medical artist. documented in this encounter Plan of Treatment Not on file documented as of this encounter Visit Diagnoses Not on filedocumented in this encounter Care Teams Heel Breaster Relationship Specialty Start Date End Date Ilana Edouard MD PCP - General Internal Medicine 07/30/20 documented as of this encounter
--- OUTSIDE RECORDS SUMMARY | 2025-03-29 12:56 | XMS_ITS | Encounter Summary ---
Author Organization [facility] Address [address] [place] [address] Care Team Providers Care Speed Winder Name Role Phone Willem Landers Primary Care Provider [phone] Rupert Pacheco MD Primary Care Provider UnavailIlana Valdez MD Primary Care Provider Delaney brandon Encounter Details Date Type Department Care Team Description 05/12/2012 Hospital Medical Records [address] [place] [address] Merlin Gutierrez MD [address] [place] [address] [place] [id number] Social History Tobacco Use Types Packs/Day Years Used Date Smoking Tobacco: Never Assessed Sex Assigned at Date Recorded Not on file documented as of this encounter Plan of Treatment Not on file documented as of this encounter Visit Diagnoses Not on filedocumented in this encounter Care Teams Speed Winder Relationship Specialty Start Date End Date Willem Landers [address] [place] [address] PCP - General 03/04/1994 09/27/16 Rupert Pacheco MD [address] [place] [id number] PCP - General Internal Medicine 09/28/16 07/29/20 Ilana Edouard MD [address] [place] [address] PCP - General Internal Medicine 07/30/20 documented as of this encounter
== END 2025-03-29 12:20 | disposition home or self-care (01) ==
LOC: HO.HMCC 11:10
PROVIDERS: PCP Internal Medicine; Visit Provider Internal Medicine
DX: R42 Dizziness and giddiness (principal); J45.909 Unspecified asthma, uncomplicated; I10 Essential (primary) hypertension

== ENCOUNTER → 2025-03-29 12:16 | Outpatient (BNV) | payer MEDICARE, SELFPAY | PROVIDERS: PCP Internal Medicine; Visit Provider Radiology Diagnostic Radiology | DX: J45.909 Unspecified asthma, uncomplicated (principal) | CPT/HCPCS: 71046 ==

== ENCOUNTER 2025-06-12 08:55 | Outpatient (AMB) | payer MEDICARE, SELFPAY ==
[2025-06-12 09:12] VITALS: BP 126/78; PULSE 58; RESP 17; TEMP 36.8; O2SAT 99; BMI 31.0
--- NOTE | 2025-06-12 09:12 | MHC.PC.OV ---
Vital Signs 06/12/25 09:12 Height 5 ft 6 in Weight 192 lb BMI 31.0 BP 126/78 Blood Pressure Location Lt brachial Position Sitting Respiration 17 Pulse 58 Pulse Source Pulse Oximeter Temp 98.2 F Temp Source Oral Pulse Oximetry (%) 99 Oxygen Delivery Method Room Air Intake Visit Reasons: headaches Intake Note: Pt is here today for a sick visit. Pt c/o headaches. Allergies Penicillins Allergy (Intermediate, Verified 06/12/25 09:12) Hives Medication List - Last Reconciled 06/12/25 by Ilana Edouard MD albuterol sulfate 90 mcg/actuation (Ventolin HFA) 2 puffs inhalation Q6H PRN amoxicillin-pot clavulanate 875-125 mg 1 tab PO BID atorvastatin 40 mg PO DAILY donepezil 5 mg PO DAILY ketoconazole 2% 1 appl topical DAILY methylcellulose (laxative) (Citrucel) 500 mg PO BID metoprolol succinate ER 50 mg PO DAILY prednisone 10 mg PO DAILY sertraline 50 mg PO DAILY valsartan-hydrochlorothiazide 160-12.5 mg 1 tab PO DAILY Tobacco use date assessed: 06/12/25 Last assessed Fall Risk: 06/12/25 Dental Screening Dental Screen Date: 10/17/24 HPI headaches HPI Details Patient presents complaining of worsening daily headaches, on the top of her head waking up in the morning with the headaches. Patient has been taking Tylenol daily with only partial relief of the headaches. Patient denies nausea vomiting change in the vision, weakness or numbness in the extremities. 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 the last brain MRI was over 20 years ago. She complains of recurrent sinus congestion right facial pain and purulent nasal discharge. Hypertension hyperlipidemia are controlled on current medications [facility] Medical History Submandibular gland infection Annual physical exam Hyperglycemia Asthma Cough Bronchitis Hematuria Enlarged thyroid gland Family history- stomach cancer Liver hemangioma History of mammogram Chronic edema Hyperlipidemia HTN (hypertension) Sciatica Surgical History H/O colonoscopy H/O shoulder surgery Family History Father No problems noted. Mother No problems noted. Sister No problems noted. Social History Housing: House Are you a primary healthcare applications analyst to a significant other at home: No Do you presently have visiting nurse or other home services: No Alcohol intake: never Patient Tobacco Use Status: Never used Tobacco e-Cigarette/Vaping Use: Never Used service: No Current occupational status: retired Cognitive needs: No Hearing needs: No Vision needs: Yes Questionnaire PHQ-9 Over the last 2 weeks, how often have you been bothered by any of the following problems? 3. Trouble falling or staying asleep, or sleeping too much: not at all Source: Developed by Drs. Jacoby Bernal, Lawanda Lu, Carlos Manuel Bills and colleagues, with an educational joel from [employer]. Thrive Questionnaire Date Thrive assessed: 10/17/24 IRWIN-7 AMB Questionnaire IRWIN-7 Date IRWIN - 7 assessed: 10/17/24 Source: Developed by Drs. Jacoby Bernal, Lawanda Lu, Carlos Manuel Bills and colleagues, with an educational joel from [employer]. Review of Systems Const All systems reviewed & are unremarkable except as noted in HPI and below ENT Reports no additional complaints Card Reports no additional complaints Resp Reports no additional complaints GI Reports no additional complaints Reports no additional complaints Physical exam (Primary Care) Vital Signs: Last Vital Signs Temp 98.2 F 06/12/25 09:12 Pulse 58 06/12/25 09:12 Resp 17 06/12/25 09:12 BP 126/78 06/12/25 09:12 Pulse Ox 99 06/12/25 09:12 Oxygen Delivery Method Room Air 06/12/25 09:12 BMI result Body Mass Index 31.0 Tobacco/Smoking Status: Tobacco use Status Tobacco use date assessed 06/12/25 06/12/25 09:13 Patient Tobacco Use Status Never used Tobacco 06/12/25 09:13 e-Cigarette/Vaping Use Never Used 06/12/25 09:13 Thrive Assessment: Date of Thrive Assessment Date Thrive assessed 10/17/24 06/12/25 09:13 Const General: no acute distress HENMT Head: Yes normal to inspection Ears: TM's normal bilaterally Throat: Yes postnasal drainage Eyes General: appearance normal, both eyes and all related structures Neck Neck: Yes no lymphadenopathy and Yes supple Resp Effort & Inspection: normal respiratory effort Auscultation: clear to auscultation bilaterally Cardio Rhythm: regular rhythm Heart sounds: S1 normal heart sound present and S2 normal heart sound present Neuro Cranial nerves: Yes CN's II-XII intact bilaterally Motor exam (neuro): 5/5 motor strength present throughout Romberg Test: Negative Coding Level of Care Code Est Pt Level 4 (70104) Diagnoses 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 HTN (hypertension) I10 Hyperlipidemia E78.5 Acute recurrent ethmoidal sinusitis J01.21 Recurrence: recurrent Assessment & Plan Assessment & Plan (1) Pituitary abnormality: Comment: History of pituitary mass, 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 Code(s): E23.7 - Disorder of pituitary gland, unspecified Category: Medical Plan: Obtain brain MRI to evaluated for worsening daily headaches and history of pituitary mass (2) HTN (hypertension): Code(s): I10 - Essential (primary) hypertension Category: Medical Plan: Continue current medications (3) Hyperlipidemia: Code(s): E78.5 - Hyperlipidemia, unspecified Category: Medical Plan: Continue statin (4) Acute ethmoidal sinusitis: Code(s): J01.20 - Acute ethmoidal sinusitis, unspecified Category: Medical Qualifiers: Recurrence: recurrent Qualified Code(s): J01.21 - Acute recurrent ethmoidal sinusitis Plan: Augmentin and prednisone prescribed and supportive care discussed with the patient Orders: Orders MR head/brain wo con Today E23.7 - Disorder of pituitary gland, unspecified TSH reflex Free T4 4 Months E23.7 - Disorder of pituitary gland, unspecified, E78.5 - Hyperlipidemia, unspecified, I10 - Essential (primary) hypertension, R73.9 - Hyperglycemia, unspecified Hemoglobin A1c 4 Months E23.7 - Disorder of pituitary gland, unspecified, R73.9 - Hyperglycemia, unspecified Comprehensive [place]. Panel Fast 4 Months E23.7 - Disorder of pituitary gland, unspecified, E78.5 - Hyperlipidemia, unspecified, I10 - Essential (primary) hypertension, R73.9 - Hyperglycemia, unspecified Complete Blood Count Auto Diff 4 Months E23.7 - Disorder of pituitary gland, unspecified, E78.5 - Hyperlipidemia, unspecified, I10 - Essential (primary) hypertension, R73.9 - Hyperglycemia, unspecified Lipid Panel 4 Months E23.7 - Disorder of pituitary gland, unspecified, E78.5 - Hyperlipidemia, unspecified, I10 - Essential (primary) hypertension, R73.9 - Hyperglycemia, unspecified Prolactin 4 Months E23.7 - Disorder of pituitary gland, unspecified, R73.9 - Hyperglycemia, unspecified Medications: New amoxicillin-pot clavulanate 875-125 mg 1 tab PO BID 20 tabs 0RF prednisone 10 mg PO DAILY 10 tabs 0RF
== END 2025-06-12 10:36 | disposition home or self-care (01) ==
LOC: HO.HMCC 08:56
PROVIDERS: PCP Internal Medicine; Visit Provider Internal Medicine
DX: E23.7 Disorder of pituitary gland, unspecified (principal); I10 Essential (primary) hypertension; E78.5 Hyperlipidemia, unspecified; J01.21 Acute recurrent ethmoidal sinusitis

== ENCOUNTER → 2025-06-12 08:55 | Outpatient (BNVA) | payer MEDICARE, SELFPAY | PROVIDERS: PCP Internal Medicine; Visit Provider Internal Medicine | DX: E23.7 Disorder of pituitary gland, unspecified (principal); E78.5 Hyperlipidemia, unspecified; I10 Essential (primary) hypertension; J01.21 Acute recurrent ethmoidal sinusitis | CPT/HCPCS: 99212 ==